=== PATIENT | male | born 1965 ===

== ENCOUNTER 2016-08-30 18:31 | Emergency (ER) | payer OTHER ==
[2016-08-30 18:36] VITALS: BMI 27.4
[2016-08-30] MEDS ORDERED: Sodium Chloride 0.9% 1,000 ML IV ONE (19:11)
--- NOTE | 2016-08-30 19:11 | C.PDOC ---
"History Of Present Illness 51 year old male presents to the ED with complaints of dizziness, and room- spinning vertigo for the past two days exacerbated by increased head movement. Patient denies nausea or vomiting. Chief Complaint (Nursing): Dizziness/Lightheaded History Per: Patient History/Exam Limitations: no limitations Onset/Duration Of Symptoms: Days Current Symptoms Are (Timing): Still Present Past Medical History Reviewed: Historical Data, Nursing Documentation, Vital Signs Vital Signs: Last Vital Signs Temp 98 F 08/30/16 18:37 Pulse 64 08/30/16 18:37 Resp 18 08/30/16 18:37 BP 111/67 08/30/16 18:37 Pulse Ox 98 08/30/16 20:37 Family History: States: Unknown Family Hx - Social History Hx Alcohol Use: Yes Hx Substance Use: No - Immunization History Hx Tetanus Toxoid Vaccination: No Hx Influenza Vaccination: No Hx Pneumococcal Vaccination: No Review Of Systems Constitutional: Negative for: Fever, Chills Cardiovascular: Negative for: Chest Pain Respiratory: Negative for: Shortness of Breath Gastrointestinal: Negative for: Nausea, Vomiting, Abdominal Pain, Diarrhea Neurological: Positive for: Dizziness (described as room spinning ) Physical Exam - Physical Exam Appears: Non-toxic, No Acute Distress Skin: Warm, Dry Head: Normacephalic Eye(s): bilateral: PERRL, EOMI, Other (no nystagmus ) Ear(s): Bilateral: Normal Neck: Normal ROM Chest: Symmetrical, No Deformity Cardiovascular: Rhythm Regular, No Murmur Respiratory: No Accessory Muscle Use, No Rales, No Rhonchi, No Stridor, No Wheezing Gastrointestinal/Abdominal: Soft, No Tenderness, No Distention, No Guarding, No Rebound Extremity: Normal ROM, No Tenderness Neurological/Psych: Oriented x3, Other (no focal deficits ) ED Course And Treatment - Laboratory Results Result Diagrams: 08/30/16 19:48 08/30/16 19:48 ECG: Interpreted By Me, Viewed By Me ECG Rhythm: Sinus Rhythm ECG Interpretation: No Acute Changes, Abnormal (presence of small Q wave in inferir leads) O2 Sat by Pulse Oximetry: 98 (room air ) - CT Scan/US CT HEAD WO CONTRAST Other Rad Studies (CT/US): Read By Radiologist CT/US Interpretation: [facility]. [facility]. Preliminary Radiology Report Call: [phone]. assistance Online chat: [email or web address]. Name: VÍCTOR MELVIN Age: 51Years M Date: 08/30/2016. Requesting Physician: Deven Flores : 1965. [facility] Procedure Ordered As Accession Number of Images. CT HEAD WO CT HEAD W O CONTRAST [id number] 162. Provided Clinical History: Headache. Page 1 of 2. EXAM: CT Head Without Intravenous Contrast. CLINICAL HISTORY: 51 year old male with headache. TECHNIQUE: Axial computed tomography images of the head without intravenous contrast. This CT exam was performed using one or more of the following dose reduction techniques: automated exposure control, adjustment of the mA and/or kV according to patient size, and/or use of. iterative reconstruction technique. EXAM DATE/TIME: 08/30/16 (7:11pm). COMPARISON: No relevant prior studies available. FINDINGS: Brain: Unremarkable. No acute hemorrhage. No significant white matter disease. No ceebral. edema. Ventricles: Unremarkable. No ventriculomegaly. Bones/joints: Unremarkable. No acute fracture. Soft tissues: Unremarkable. Sinuses: Bilateral paranasal sinus inflammatory changes. Some fluid is present in the right. maxillary sinus (not fully imaged), with an air-fluid level. Mastoid air cells: Unremarkable as visualized. No mastoid effusion. IMPRESSION: No acute intracranial pathology is appreciated. Bilateral paranasal sinus inflammatory changes. Some fluid is present in the right maxillary sinus. (not fully imaged), with an air-fluid level. VÍCTOR MELVIN | Preliminary Radiology Report. MINE ENGINEERING SUPERINTENDENT (QA) DISCREPANCY? If there is a discrepancy between the preliminary and final interpretation, please notify Powered via [email or web address]. If you do not have access to our QA portal, call our QA team at [phone]. CONFIDENTIALITY STATEMENT. This report is intended only for the use of the referring physician, and only in accordance with law, If you received this in error, call [phone]. Page 2 of 2. Thank you for allowing us to participate in the care of your patient. Dictated and Authenticated by: Kiki Luu MD. 08/30/2016 7:40 PM Eastern Time ([place] & [place]) Disposition Counseled Patient/Family Regarding: Diagnosis - Disposition Referrals: [facility] at [facility] [Outside] Disposition: HOME/ ROUTINE Disposition Time: 20:39 Condition: STABLE Prescriptions: Amoxicillin [Amoxil 500 mg Cap] 500 mg PO TID #20 cap Desloratadine/Pseudoephedrine [Clarinex-D 12 Hour Tablet] 1 each PO Q12 #20 tbmp.12hr Meclizine [Antivert] 25 mg PO Q6 #20 tab Instructions: Vertigo (ED), Sinusitis (ED) Forms: Gen Discharge Inst Samoan Print Language: PORTUGUESE - POA Present On Arrival: None - Clinical Impression Clinical Impression: Dizziness, Vertigo, Sinusitis - Scribe Statement The provider has reviewed the documentation as recorded by the Scribe Prisca Garcia All medical record entries made by the Francesibkatey were at my direction and personally dictated by me. I have reviewed the chart and agree that the record accurately reflects my personal performance of the history, physical exam, medical decision making, and the department course for this patient. I have also personally directed, reviewed, and agree with the discharge instructions and disposition."
[2016-08-30 19:51] LABS: BASO % 0.3 % (0.0-2.0); EOS # 0.1 K/uL (0.0-0.7); EOS % 0.7 % (0.0-4.0); HEMATOCRIT 41.9 % (35.0-51.0); LYMPH % 8.9 % (20.0-40.0); MEAN CELL VOLUME 83.4 fL (80.0-94.0); MEAN CORPUSCULAR HEMOGLOBIN 28.1 pg (27.0-31.0); MEAN CORPUSCULAR HGB CONC 33.7 g/dL (33.0-37.0); MEAN PLATELET VOLUME 7.5 fL (7.2-11.7); MONO # 0.4 K/uL (0.0-0.8); MONO % 3.5 % (0.0-10.0); PLATELET COUNT 197 K/uL (130-400); RED CELL DISTRIBUTION WIDTH 12.8 % (11.5-14.5); WHITE BLOOD COUNT 11.4 K/uL (4.8-10.8)
[2016-08-30 19:59] LABS: CHLORIDE 99 mmol/L (98-107); POTASSIUM 3.8 mmol/L (3.6-5.2); SODIUM 138 mmol/L (132-148)
[2016-08-30] MEDS ORDERED: Sodium Chloride 0.9% 1,000 ML ONE (19:59)
[2016-08-30 20:01] LABS: ALB/GLOB RATIO 1.2 (1.0-2.1); ALKALINE PHOSPHATASE 65 U/L (38-126); ALT/SGPT 26 U/L (21-72); AST/SGOT 28 U/L (17-59); BILIRUBIN,TOTAL 0.5 mg/dL (0.2-1.3); BLOOD UREA NITROGEN 16 mg/dL (9-20); CARBON DIOXIDE 26 mmol/L (22-30); GFR AFRICAN-AMERICAN > 60; TOTAL PROTEIN 7.8 g/dL (6.3-8.3)
[2016-08-30 20:02] LABS: CALCIUM 8.5 mg/dl (8.6-10.4); GLUCOSE,RANDOM 109 mg/dL (75-110)
[2016-08-30 20:35] LABS: NEUTROPHIL 82 % (50-75); REACTIVE LYMPHOCYTES 4 % (0-0); TOTAL CELLS COUNTED 100
[2016-08-30] MEDS ORDERED: Amoxicillin-Clav 500-125 mg Tab PO ONE (20:47)
[2016-08-30 20:57] VITALS: BP 107/70; PULSE 81; RESP 16; TEMP 97.8; O2SAT 97
--- NOTE | 2016-08-31 08:19 | CT ---
PROCEDURE: CT HEAD WITHOUT CONTRAST. HISTORY: Headache COMPARISON: None available. TECHNIQUE: Axial computed tomography images were obtained through the head/brain without intravenous contrast. This CT exam was performed using one or more of the following dose reduction techniques: Automated exposure control, adjustment of the mA and/or kV according to patient size, and/or use of iterative reconstruction technique. Radiation dose: Total exam DLP = 877 mGy-cm. FINDINGS: HEMORRHAGE: No intracranial hemorrhage. BRAIN: No mass effect or edema. No atrophy or chronic microvascular ischemic changes. VENTRICLES: Unremarkable. No hydrocephalus. CALVARIUM: Unremarkable. PARANASAL SINUSES: Bilateral paranasal sinus inflammatory changes. Some fluid is present in the right maxillary sinus with an air-fluid level. MASTOID AIR CELLS: Unremarkable as visualized. No inflammatory changes. OTHER FINDINGS: None. IMPRESSION: No acute intracranial abnormality. Bilateral paranasal sinus inflammatory changes. Some fluid is present in the right maxillary sinus with an air-fluid level. These findings were preliminarily reported at 7:40 p.m. on 08/30/[address] Kiki Luu from [facility].
--- NOTE | 2016-08-31 23:14 | CARD ---
APPROVED REPORT EKG Measurement Heart [id number] CO [id number] <Conclusion> Normal sinus rhythm Cannot rule out Inferior infarct, age undetermined Abnormal ECG
== END 2016-08-30 20:57 | disposition home or self-care (01) ==
LOC: C.ER 18:31
DX: J32.0 Chronic maxillary sinusitis (principal)
CPT/HCPCS: 70450; 80053; 85025; 93005; 96374; 99285; J2060; J7040

== ENCOUNTER 2018-08-10 14:37 | Inpatient (IN) | payer OTHER ==
[2018-08-10 14:38] VITALS: BMI 27.4
--- NOTE | 2018-08-10 15:19 | C.PDOC ---
History Of Present Illness 53 yr old w/ previous L finger amputations p/w abdominal pain. Pt notes abdominal pain began last night at 2200, sharp stabbing, throbbing to his RLQ and vicki-umiblical area. First time occurrence of pain. No constipation or diarrhea, no dark or bloody stool. No nausea or vomiting. Pt denies taking any medications for the pain. No fall or trauma. No fever, chills or night sweats. Pt endorses regular diet without recent travel. No medications. No etoh or drug use. no other complaints. Time Seen by Provider: 08/10/18 14:59 Chief Complaint (Nursing): Abdominal Pain Past Medical History Vital Signs: Last Vital Signs Temp 98.2 F 08/10/18 14:49 Pulse 70 08/10/18 14:49 Resp 17 08/10/18 14:49 BP 108/72 08/10/18 14:49 Pulse Ox 99 08/10/18 14:49 Family History: States: Unknown Family Hx - Social History Hx Alcohol Use: Yes Hx Substance Use: No - Immunization History Hx Tetanus Toxoid Vaccination: No Hx Influenza Vaccination: No Hx Pneumococcal Vaccination: No Review Of Systems Constitutional: Negative for: Fever, Chills, Sweats, Weakness, Malaise Eyes: Negative for: Pain, Vision Change, Conjunctivae Inflammation ENT: Negative for: Ear Pain, Ear Discharge, Nose Pain, Nose Congestion, Mouth Pain, Mouth Swelling Cardiovascular: Negative for: Chest Pain, Palpitations, Orthopnea, Edema, Light Headedness Respiratory: Negative for: Cough, Shortness of Breath, Hemoptysis, SOB with Excertion, Pleuritic Pain Gastrointestinal: Positive for: Abdominal Pain. Negative for: Nausea, Vomiting, Diarrhea, Constipation, Melena, Hematochezia, Hematemesis Genitourinary: Negative for: Frequency, Incontinence, Hematuria, Penile Discharge, Scrotal Pain, Rash, Penile Pain Musculoskeletal: Negative for: Neck Pain, Shoulder Pain Skin: Negative for: Rash, Lesions Neurological: Negative for: Weakness Psych: Negative for: Anxiety Physical Exam - Physical Exam Appears: Well, Non-toxic, No Acute Distress Skin: Normal Color, Warm Head: Atraumatic, Normacephalic Eye(s): bilateral: Normal Inspection, PERRL, EOMI Ear(s): Bilateral: Normal Nose: Normal, No Flaring, No Discharge Oral Mucosa: Moist Tongue: Normal Appearing Lips: Normal Appearing Gingiva: Normal Appearing Throat: Normal, No Erythema, No Exudate, No Drooling Neck: Normal, Normal ROM, Supple, Other (no meningeal signs) Lymphatic: Normal Exam, No Axilla Node Tenderness Chest: Symmetrical Cardiovascular: Rhythm Regular Respiratory: Normal Breath Sounds, No Rales, No Rhonchi, No Stridor, No Wheezing Gastrointestinal/Abdominal: Tenderness (rlq pain, periumbilical pain) Back: Normal Inspection, No CVA Tenderness, No Vertebral Tenderness, No Paraspinal Tenderness Extremity: Normal ROM Neurological/Psych: Oriented x3, Normal Speech, Normal Cognition Gait: Steady ED Course And Treatment - Laboratory Results Result Diagrams: 08/10/18 17:15 08/10/18 17:15 O2 Sat by Pulse Oximetry: 99 Medical Decision Making Medical Decision Makin yr old male p/w abdominal pain, RLQ, periumbilical. He also noted mild dysuria 2d prior, but none currently. No penile d/c or rash. No high risk sexual activity. No N/V. No dark or bloody stool or constipation / diarrhea. Will rule out appendicits w/ ct . pending imaging and labs 1752 labs, urine largely unremarkable pending imaging. [address] Flores pending imaging, reassessment pt in NAD Disposition - Disposition Disposition Time: 19:00 Condition: STABLE Forms: [facility] (Tajik) - Clinical Impression Clinical Impression: Abdominal pain
[2018-08-10] MEDS ORDERED: Sodium Chloride 0.9% 1,000 ML IV SCH (15:45)
[2018-08-10] MEDS ORDERED: Sodium Chloride 0.9% 1,000 ML ONE (16:38)
[2018-08-10 17:14] LABS: VENOUS BLOOD GAS BASE EXCESS 3.7 mmol/L (0.0-2.0); VENOUS BLOOD GAS PCO2 49 mmHg (40-60); VENOUS BLOOD GAS PO2 16 mm/Hg (30-55); VENOUS BLOOD PH 7.39 (7.32-7.43)
[2018-08-10 17:24] LABS: BASO # 0.1 K/uL (0.0-0.2); BASO % 1.1 % (0.0-2.0); EOS % 0.1 % (0.0-4.0); HEMOGLOBIN 13.5 g/dL (12.0-18.0); LYMPH # 0.9 K/uL (1.0-4.3); LYMPH % 14.1 % (20.0-40.0); MEAN CELL VOLUME 85.2 fL (80.0-94.0); MEAN CORPUSCULAR HGB CONC 32.9 g/dL (33.0-37.0); MEAN PLATELET VOLUME 8.2 fL (7.2-11.7); MONO # 0.3 K/uL (0.0-0.8); MONO % 4.3 % (0.0-10.0); NEUT # 4.9 K/uL (1.8-7.0); NEUT % 80.4 % (50.0-75.0); NRBC % 0.1 % (0.0-2.0); RBC 4.81 Mil/uL (4.40-5.90); RED CELL DISTRIBUTION WIDTH 12.7 % (11.5-14.5)
[2018-08-10 17:38] LABS: URINE BACTERIA RARE (<OCC); URINE BILIRUBIN NEGATIVE (NEGATIVE); URINE BLOOD NEGATIVE (NEGATIVE); URINE CLARITY Hazy (Clear); URINE COLOR Amber (YELLOW); URINE GLUCOSE (UA) NORMAL (Normal); URINE LEUKOCYTE ESTERASE NEG Leu/uL (Negative); URINE PROTEIN NEGATIVE (NEGATIVE); URINE UROBILINOGEN NORMAL mg/dL (0.2-1.0)
[2018-08-10 17:41] LABS: ALB/GLOB RATIO 1.1 (1.0-2.1); ALBUMIN 4.4 g/dL (3.5-5.0); ALT/SGPT 49 U/L (21-72); AST/SGOT 64 U/L (17-59); BLOOD UREA NITROGEN 14 mg/dL (9-20); CALCIUM 9.1 mg/dl (8.6-10.4); GFR NON-AFRICAN AMERICAN > 60; LIPASE 91 U/L (23-300)
[2018-08-10] MEDS ORDERED: Iodixanol 320 MG/ML 100 ML BOTTLE IV ONE (18:19)
--- NOTE | 2018-08-10 20:58 | CP.PCM.HP ---
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 53 M w/ PMhx of vertigo presents to ED for abdominal pain. Patient states pain began last night and has been gradually worsening since then, now 10/10, diffuse through abdomen w/ radiation to b/l lumbar region. Patient denies fevers, chills, nausea, vomiting, constipation, diarrhea. Patient reports having eaten home cooked food yesterday evening along with family with reported illness. Patient denies having taken any medication for the pain/ relief of symptoms. Patient reported to the surgery team that he recently began a new supplement (unsure of name) 3 days prior to arrival to ED. Patient denies having had a colonoscopy. In ED patient initially afebrile, became febrile 102.9 & tachycardiac HR 108s, SBP 110s. Blood cultures obtained and 1 X tylenol given. PMD: None PMHx: Vertigo Meds: Denies Allergies: NKDA PSHx: L partial 1st and complete 2nd digit amputation s/p work injury in 1995 SHx: Denies tobacco use, EOTH socially, denies illicit drug use FHx: Mother from stomach cancer, Father unknown medical history Present on Admission - Present on Admission Any Indicators Present on Admission: No History of DVT/PE: No History of Uncontrolled Diabetes: No Urinary Catheter: No Decubitus Ulcer Present: No Review of Systems - Constitutional Constitutional: absent: Chills, Fever, Night Sweats - EENT Eyes: absent: Blurred Vision, Change in Vision Nose/Mouth/Throat: absent: Nasal Congestion, Nasal Trauma - Cardiovascular Cardiovascular: absent: Chest Pain, Chest Pain at Rest, Dyspnea - Respiratory Respiratory: absent: Dyspnea, Dyspnea on Exertion - Genitourinary Genitourinary: absent: Change in Urinary Stream, Urinary Incontinence - Musculoskeletal Musculoskeletal: absent: Arthralgias, Muscle Weakness - Psychiatric Psychiatric: absent: Confusion - Hematologic/Lymphatic Hematologic: absent: Easy Bleeding, Easy Bruising Past Patient History - Past Social History Smoking Status: Never Smoked - PSYCHIATRIC Hx Substance Use: No - SURGICAL HISTORY Hx Surgeries: Yes Hx Orthopedic Surgery: Yes (LEFT HAND) - ANESTHESIA Hx Anesthesia: Yes Hx Anesthesia Reactions: No Meds Allergies/Adverse Reactions: Allergies Allergy/AdvReac Type Severity Reaction Status Date / Time No Known Allergies Allergy Verified 08/10/18 14:53 Physical Exam - Constitutional Appears: Non-toxic, No Acute Distress - Head Exam Head Exam: NORMAL INSPECTION, NORMOCEPHALIC - Eye Exam Eye Exam: EOMI, Normal appearance Pupil Exam: NORMAL ACCOMODATION - ENT Exam ENT Exam: Mucous Membranes Moist - Respiratory Exam Respiratory Exam: Clear to Auscultation Bilateral, NORMAL BREATHING PATTERN. absent: Rales, Rhonchi, Wheezes - Cardiovascular Exam Cardiovascular Exam: +S1, +S2. absent: Systolic Murmur - GI/Abdominal Exam GI & Abdominal Exam: Guarding, Normal Bowel Sounds, Soft, Tenderness. absent: Distended, Firm, Rigid Additional comments: Tenderness on superficial palpation Patient unable move w/o pain Patient unable further tolerate abdominal exam - Extremities Exam Extremities exam: Positive for: full ROM, normal inspection. Negative for: calf tenderness, pedal edema - Back Exam Back exam: CVA tenderness (L). absent: CVA tenderness (R) - Neurological Exam Neurological exam: Alert, Oriented x3 - Psychiatric Exam Psychiatric exam: Normal Affect, Normal Mood - Skin Skin Exam: Dry, Intact, Normal Color, Warm Results - Vital Signs Recent Vital Signs: Last Vital Signs Temp 101.9 F H 08/10/18 20:38 Pulse 102 H 08/10/18 20:38 Resp 16 08/10/18 20:38 BP 128/75 08/10/18 20:38 Pulse Ox 99 08/10/18 20:38 - Labs Result Diagrams: 08/10/18 17:15 08/10/18 17:15 Labs: Laboratory Results - last 24 hr 08/10/18 08/10/18 08/10/18 17:12 17:15 17:15 WBC 6.0 RBC 4.81 Hgb 13.5 Hct 41.0 MCV 85.2 MCH 28.0 MCHC 32.9 L RDW 12.7 Plt Count 137 MPV 8.2 Neut % (Auto) 80.4 H Lymph % (Auto) 14.1 L Graham % (Auto) 4.3 Eos % (Auto) 0.1 Baso % (Auto) 1.1 Neut # (Auto) 4.9 Lymph # (Auto) 0.9 L Graham # (Auto) 0.3 Eos # (Auto) 0.0 Baso # (Auto) 0.1 pO2 16 L VBG pH 7.39 VBG pCO2 49 VBG HCO3 25.7 VBG Total CO2 31.2 H VBG O2 Sat (Calc) 37.8 L VBG Base Excess 3.7 H VBG Potassium 3.6 Sodium 137.0 138 Chloride 106.0 99 Glucose 111 H Lactate 1.1 Potassium 3.7 Carbon Dioxide 30 Anion Gap 13 BUN 14 Creatinine 0.8 Est GFR ( Amer) > 60 Est GFR (Non-Af Amer) > 60 Random Glucose 116 H Calcium 9.1 Total Bilirubin 0.9 AST 64 H ALT 49 Alkaline Phosphatase 93 Total Protein 8.7 H Albumin 4.4 Globulin 4.2 H Albumin/Globulin Ratio 1.1 Lipase 91 Venous Blood Potassium 3.6 Urine Color Urine Clarity Urine pH Ur Specific [place] Urine Protein Urine Glucose (UA) Urine Ketones Urine Blood Urine Nitrate Urine Bilirubin Urine Urobilinogen Ur Leukocyte Esterase Urine WBC (Auto) Urine RBC (Auto) Urine Bacteria 08/10/18 17:15 WBC RBC Hgb Hct MCV MCH MCHC RDW Plt Count MPV Neut % (Auto) Lymph % (Auto) Graham % (Auto) Eos % (Auto) Baso % (Auto) Neut # (Auto) Lymph # (Auto) Graham # (Auto) Eos # (Auto) Baso # (Auto) pO2 VBG pH VBG pCO2 VBG HCO3 VBG Total CO2 VBG O2 Sat (Calc) VBG Base Excess VBG Potassium Sodium Chloride Glucose Lactate Potassium Carbon Dioxide Anion Gap BUN Creatinine Est GFR ( Amer) Est GFR (Non-Af Amer) Random Glucose Calcium Total Bilirubin AST ALT Alkaline Phosphatase Total Protein Albumin Globulin Albumin/Globulin Ratio Lipase Venous Blood Potassium Urine Color Sierra Urine Clarity Hazy Urine pH 5.0 Ur Specific [place] 1.021 Urine Protein Negative Urine Glucose (UA) Normal Urine Ketones Trace Urine Blood Negative Urine Nitrate Negative Urine Bilirubin Negative Urine Urobilinogen Normal Ur Leukocyte Esterase Neg Urine WBC (Auto) 3 Urine RBC (Auto) 1 Urine Bacteria Rare Assessment & Plan - Assessment and Plan (Free Text) Assessment: 53 M w/ new onset abdominal pain w/ pain out of proportion, CT revealing colitis vs gastroenteritis Plan: Colitis Gastroenteritits - lactate 1.1, Temp 102.8, HR 108, Lipase 91 - CT abd/pelvis: colitis vs gastroenteritis - NPO - LR @ 120 mls/hr - Ciproflaxicin 400 mg Q12H, flagyl 5000 mg Q8H - Morphine 4mg IVP Q4 PRN for pain - Zofran 4 mg IVP Q4 PRN for nausea/vomiting - Pepcid 20 mg daily - F/u EKG PPx - GI: Lactobacillus - DVT: Lovenox 40mg SC daily, SCDs <Elmer Kraus - Last Filed: 08/11/18 06:31> Results - Vital Signs Recent Vital Signs: Last Vital Signs Temp 98.8 F 08/10/18 23:42 Pulse 76 08/10/18 23:42 Resp 20 08/10/18 23:42 BP 100/60 08/10/18 23:42 Pulse Ox 97 08/10/18 23:42 - Labs Result Diagrams: 08/10/18 17:15 08/10/18 17:15 Labs: Laboratory Results - last 24 hr 08/10/18 08/10/18 08/10/18 17:12 17:15 17:15 WBC 6.0 RBC 4.81 Hgb 13.5 Hct 41.0 MCV 85.2 MCH 28.0 MCHC 32.9 L RDW 12.7 Plt Count 137 MPV 8.2 Neut % (Auto) 80.4 H Lymph % (Auto) 14.1 L Graham % (Auto) 4.3 Eos % (Auto) 0.1 Baso % (Auto) 1.1 Neut # (Auto) 4.9 Lymph # (Auto) 0.9 L Graham # (Auto) 0.3 Eos # (Auto) 0.0 Baso # (Auto) 0.1 pO2 16 L VBG pH 7.39 VBG pCO2 49 VBG HCO3 25.7 VBG Total CO2 31.2 H VBG O2 Sat (Calc) 37.8 L VBG Base Excess 3.7 H VBG Potassium 3.6 Sodium 137.0 138 Chloride 106.0 99 Glucose 111 H Lactate 1.1 Potassium 3.7 Carbon Dioxide 30 Anion Gap 13 BUN 14 Creatinine 0.8 Est GFR ( Amer) > 60 Est GFR (Non-Af Amer) > 60 Random Glucose 116 H Calcium 9.1 Total Bilirubin 0.9 AST 64 H ALT 49 Alkaline Phosphatase 93 Total Protein 8.7 H Albumin 4.4 Globulin 4.2 H Albumin/Globulin Ratio 1.1 Lipase 91 Venous Blood Potassium 3.6 Urine Color Urine Clarity Urine pH Ur Specific [place] Urine Protein Urine Glucose (UA) Urine Ketones Urine Blood Urine Nitrate Urine Bilirubin Urine Urobilinogen Ur Leukocyte Esterase Urine WBC (Auto) Urine RBC (Auto) Urine Bacteria 08/10/18 17:15 WBC RBC Hgb Hct MCV MCH MCHC RDW Plt Count MPV Neut % (Auto) Lymph % (Auto) Graham % (Auto) Eos % (Auto) Baso % (Auto) Neut # (Auto) Lymph # (Auto) Graham # (Auto) Eos # (Auto) Baso # (Auto) pO2 VBG pH VBG pCO2 VBG HCO3 VBG Total CO2 VBG O2 Sat (Calc) VBG Base Excess VBG Potassium Sodium Chloride Glucose Lactate Potassium Carbon Dioxide Anion Gap BUN Creatinine Est GFR ( Amer) Est GFR (Non-Af Amer) Random Glucose Calcium Total Bilirubin AST ALT Alkaline Phosphatase Total Protein Albumin Globulin Albumin/Globulin Ratio Lipase Venous Blood Potassium Urine Color Sierra Urine Clarity Hazy Urine pH 5.0 Ur Specific [place] 1.021 Urine Protein Negative Urine Glucose (UA) Normal Urine Ketones Trace Urine Blood Negative Urine Nitrate Negative Urine Bilirubin Negative Urine Urobilinogen Normal Ur Leukocyte Esterase Neg Urine WBC (Auto) 3 Urine RBC (Auto) 1 Urine Bacteria Rare Assessment & Plan - Date & Time Date: 08/11/18 (I have seen and examined the patient. I agree with the findings and plan of care as documented by Dr. Norton. Patient with colitis. Abdominal pain. Cipro and Flagyl. Symptomatic treatment. Monitor for acute changes.) Time: 06:30 Attending/Attestation - Attestation I have personally seen and examined this patient.: Yes I have fully participated in the care of the patient.: Yes I have reviewed all pertinent clinical information: Yes
--- NOTE | 2018-08-10 22:21 | CP.PCM.CON ---
<Marilee Hawley - Last Filed: 08/10/18 22:55> History of Present Illness - History of Present Illness History of Present Illness: General Surgery Dr. Schuler 53 y/o M w/ no significant PMHx presents to the ED c/o abd pain. Pt states pain began Wednesday evening as minor ache. Pt reports pain significantly worsened throughout today. Pt denies having similar pain in the past. Pt reports pain lo calized to lower abd w/ radiation to back upon movement. Pt admits to associated nausea but denies vomiting, D/C. Pt denies any new or odd food but does admit to new vitamin supplement started 3days [employer] (1-2days prior to onset of pain). Pt has never had a colonoscopy. Pt denies CP, SOB, F/C, hematemesis, melena, hematochezia, dysuria, hesitancy, frequency, hematuria. In the ED, pt found to be febrile, Tmax 102.8, and tachy, HR 108. Labs showed normal WBC @6. Pt underwent CTAP which revealed multiple loops of fluid-filled, mildly dilated small bowel, w/ stool throughout colon. No transition point. mildly dilated, fluid-filled appendix w/o inflammation. CT concerning for gastroenteritis/colitis. Surgery called for significant abd pain in setting of above CT findings. PMHx: vertigo Meds: reviewed in chart, new vitamin B/protein supplement NKDA PSHx: L finger amputation SHx: denies tobacco, drug use. occasional EtOH FHx: noncontributory. Review of Systems - Review of Systems All systems: reviewed and no additional remarkable complaints except (see HPI) Past Patient History - Past Social History Smoking Status: Never Smoked - PSYCHIATRIC Hx Substance Use: No - SURGICAL HISTORY Hx Surgeries: Yes Hx Orthopedic Surgery: Yes (LEFT HAND) - ANESTHESIA Hx Anesthesia: Yes Hx Anesthesia Reactions: No Meds Allergies/Adverse Reactions: Allergies Allergy/AdvReac Type Severity Reaction Status Date / Time No Known Allergies Allergy Verified 08/10/18 14:53 - Medications Medications: Current Medications Sodium Chloride (Sodium Chloride 0.9%) 1,000 mls @ 100 mls/hr IV .Q10H [facility] Last Admin: 08/10/18 16:52 Dose: 100 mls/hr Physical Exam - Constitutional Appears: Non-toxic, No Acute Distress - Head Exam Head Exam: NORMAL INSPECTION - Eye Exam Eye Exam: Normal appearance - ENT Exam ENT Exam: Mucous Membranes Moist - Respiratory Exam Respiratory Exam: NORMAL BREATHING PATTERN. absent: Accessory Muscle Use, Respiratory Distress - Cardiovascular Exam Cardiovascular Exam: REGULAR RHYTHM. absent: Bradycardia, Tachycardia - GI/Abdominal Exam GI & Abdominal Exam: Guarding (voluntary), Soft, Tenderness (TTP epigastric, RUQ, RLQ). absent: Distended, Firm, Rebound, Rigid - Expanded GI/Abdominal Exam Expanded Expanded GI & Abdominal Exam: absent: Obturator Sign, Psoas Sign, Rovsing's Sign - Extremities Exam Extremities exam: Positive for: normal inspection - Neurological Exam Neurological exam: Alert, Oriented x3 - Psychiatric Exam Psychiatric exam: Normal Affect, Normal Mood - Skin Skin Exam: Dry, Intact, Normal Color, Warm Results - Vital Signs Recent Vital Signs: Last Vital Signs Temp 101.9 F H 08/10/18 20:38 Pulse 102 H 08/10/18 20:38 Resp 16 08/10/18 20:38 BP 128/75 08/10/18 20:38 Pulse Ox 99 08/10/18 20:38 - Labs Result Diagrams: 08/10/18 17:15 08/10/18 17:15 Labs: Laboratory Results - last 24 hr 08/10/18 08/10/18 08/10/18 17:12 17:15 17:15 WBC 6.0 RBC 4.81 Hgb 13.5 Hct 41.0 MCV 85.2 MCH 28.0 MCHC 32.9 L RDW 12.7 Plt Count 137 MPV 8.2 Neut % (Auto) 80.4 H Lymph % (Auto) 14.1 L [place] % (Auto) 4.3 Eos % (Auto) 0.1 Baso % (Auto) 1.1 Neut # (Auto) 4.9 Lymph # (Auto) 0.9 L [place] # (Auto) 0.3 Eos # (Auto) 0.0 Baso # (Auto) 0.1 pO2 16 L VBG pH 7.39 VBG pCO2 49 VBG HCO3 25.7 VBG Total CO2 31.2 H VBG O2 Sat (Calc) 37.8 L VBG Base Excess 3.7 H VBG Potassium 3.6 Sodium 137.0 138 Chloride 106.0 99 Glucose 111 H Lactate 1.1 Potassium 3.7 Carbon Dioxide 30 Anion Gap 13 BUN 14 Creatinine 0.8 Est GFR ( Amer) > 60 Est GFR (Non-Af Amer) > 60 Random Glucose 116 H Calcium 9.1 Total Bilirubin 0.9 AST 64 H ALT 49 Alkaline Phosphatase 93 Total Protein 8.7 H Albumin 4.4 Globulin 4.2 H Albumin/Globulin Ratio 1.1 Lipase 91 Venous Blood Potassium 3.6 Urine Color Urine Clarity Urine pH Ur Specific [place] Urine Protein Urine Glucose (UA) Urine Ketones Urine Blood Urine Nitrate Urine Bilirubin Urine Urobilinogen Ur Leukocyte Esterase Urine WBC (Auto) Urine RBC (Auto) Urine Bacteria 08/10/18 17:15 WBC RBC Hgb Hct MCV MCH MCHC RDW Plt Count MPV Neut % (Auto) Lymph % (Auto) [place] % (Auto) Eos % (Auto) Baso % (Auto) Neut # (Auto) Lymph # (Auto) [place] # (Auto) Eos # (Auto) Baso # (Auto) pO2 VBG pH VBG pCO2 VBG HCO3 VBG Total CO2 VBG O2 Sat (Calc) VBG Base Excess VBG Potassium Sodium Chloride Glucose Lactate Potassium Carbon Dioxide Anion Gap BUN Creatinine Est GFR ( Amer) Est GFR (Non-Af Amer) Random Glucose Calcium Total Bilirubin AST ALT Alkaline Phosphatase Total Protein Albumin Globulin Albumin/Globulin Ratio Lipase Venous Blood Potassium Urine Color [place] Urine Clarity Hazy Urine pH 5.0 Ur Specific [place] 1.021 Urine Protein Negative Urine Glucose (UA) Normal Urine Ketones Trace Urine Blood Negative Urine Nitrate Negative Urine Bilirubin Negative Urine Urobilinogen Normal Ur Leukocyte Esterase Neg Urine WBC (Auto) 3 Urine RBC (Auto) 1 Urine Bacteria Rare - Imaging and Cardiology Chest x-ray Status: Image reviewed by me CT scan - abdomen Status: Image reviewed by me, Report reviewed by me Assessment & Plan - Assessment and Plan (Free Text) Assessment: 53 y/o M w/ abd pain Plan: - NPO/IVF - pain management - anti-emetic - serial abd exams - GI/DVT PPx - encourage OOB to chair/Amb Pt discussed w/ Dr. Harini Hawley DO PGY3 <Oliverio Schuler - Last Filed: 08/16/18 13:41> History of Present Illness - History of Present Illness History of Present Illness: All medical record entries made by the resident were at my direction. I have reviewed the chart and agree that the record accurately reflects my personal performance of the history, physical exam, medical decision making. I have also personally directed, reviewed, and agree with the resident note Results - Vital Signs Recent Vital Signs: Last Vital Signs Temp 98.8 F 08/15/18 07:37 Pulse 61 08/15/18 07:37 Resp 20 08/15/18 07:37 BP 106/64 08/15/18 07:37 Pulse Ox 96 08/15/18 07:37 - Labs Result Diagrams: 08/15/18 06:51 08/15/18 06:51
[2018-08-10] MEDS ORDERED: Morphine 4 MG/ML VIAL IVP PRN (22:32)
[2018-08-10] MEDS: Lactated Ringer's 1,000 ML IV SCH (22:46)
[2018-08-11] MEDS: Ciprofloxacin 400mg/200ml D5W 400 MG/200 ML BAG IVPB SCH ×2 (01:10→12:27)
[2018-08-11] MEDS: metroNIDAZOLE IV 500 mg/100 ml 500 MG/100 ML BAG IVPB SCH ×4 (06:41→22:10)
[2018-08-11] MEDS ORDERED: Morphine 4 MG/ML VIAL IVP PRN ×2 (06:50→07:50)
[2018-08-11] MEDS: Lactated Ringer's 1,000 ML IV SCH ×2 (08:00→14:52)
[2018-08-11 08:02] LABS: INR 1.4; PROTHROMBIN TIME 15.6 SECONDS (9.7-12.2)
[2018-08-11 08:07] LABS: MONO # 0.5 K/uL (0.0-0.8)
[2018-08-11 08:11] LABS: BASO % 0.1 % (0.0-2.0); HEMOGLOBIN 12.5 g/dL (12.0-18.0); LYMPH # 1.5 K/uL (1.0-4.3); LYMPH % 16.2 % (20.0-40.0); MEAN CELL VOLUME 84.9 fL (80.0-94.0); MEAN CORPUSCULAR HEMOGLOBIN 28.9 pg (27.0-31.0); MEAN PLATELET VOLUME 8.5 fL (7.2-11.7); MONO % 5.5 % (0.0-10.0); NEUT % 78.2 % (50.0-75.0); NRBC % 0.5 % (0.0-2.0); RBC 4.32 Mil/uL (4.40-5.90); RED CELL DISTRIBUTION WIDTH 12.9 % (11.5-14.5)
[2018-08-11 08:37] LABS: ALBUMIN 3.5 g/dL (3.5-5.0); ALT/SGPT 37 U/L (21-72); AST/SGOT 48 U/L (17-59); BLOOD UREA NITROGEN 13 mg/dL (9-20); CALCIUM 8.2 mg/dl (8.6-10.4); GFR NON-AFRICAN AMERICAN > 60
[2018-08-11] MEDS: Lactobacillus Acidophilus 500 MU Cap PO SCH ×2 (09:03→18:09)
[2018-08-11] MEDS ORDERED: Midazolam 2 MG/2 ML VIAL ONE (09:32)
[2018-08-11] MEDS ORDERED: Propofol 10 mg/ml Inj (20 ML) ONE (09:33)
[2018-08-11] MEDS ORDERED: Bupivacaine 0.25% 20 ML INJ IJ ONE (09:55)
[2018-08-11] MEDS ORDERED: ceFAZolin 1 gm in NS 1 GM/100 ML BAG IVPB ONE (09:55)
--- NOTE | 2018-08-11 09:56 | CP.PCM.PN ---
Subjective - Date & Time of Evaluation Date of Evaluation: 08/11/18 Time of Evaluation: 07:55 - Subjective Subjective: Medical Attending Note: patient seen and examined. Patient denies headache, denies fever, denies chills, denies chest pain, denies shortness of breathe, reports the abdominal pain has been intense all night and has not rested, denies dysuria. Patient speaks both ivorian and macedonian. Patient family not present at bedside. patient is aware he is going for surgery today. He is advised to speak with family. Objective - Vital Signs/Intake and Output Vital Signs (last 24 hours): Temp Pulse Resp BP Pulse Ox 97.8 F 96 H 20 97/60 L 96 08/11/18 07:00 08/11/18 07:00 08/11/18 07:00 08/11/18 07:00 08/11/18 07:00 Intake and Output: 08/11/18 08/11/18 06:59 18:59 Intake Total 960 Balance 960 - Medications Medications: Current Medications Famotidine (Pepcid) 20 mg IVP DAILY [facility] Last Admin: 08/11/18 09:03 Dose: Not Given Lactated Ringer's (Lactated Ringer's) 1,000 mls @ 120 mls/hr IV .Q8H20M [facility] Last Admin: 08/11/18 08:00 Dose: Not Given Ciprofloxacin (Cipro 400mg/200ml Dsw) 400 mg in 200 mls @ 133 mls/hr IVPB Q12H [facility]; Protocol Last Admin: 08/11/18 01:10 Dose: 133 mls/hr Metronidazole (Flagyl) 500 mg in 100 mls @ 100 mls/hr IVPB Q8H [facility]; Protocol Last Admin: 08/11/18 06:41 Dose: 100 mls/hr Lactobacillus Acidophilus (Lactobacillus) 1 cap PO BID [facility] Last Admin: 08/11/18 09:03 Dose: Not Given Morphine Sulfate (Morphine) 4 mg IVP Q4 PRN PRN Reason: Pain, moderate (4-7) Ondansetron HCl (Zofran Inj) 4 mg IVP Q4 PRN PRN Reason: Nausea/Vomiting - Labs Labs: 08/11/18 07:34 08/11/18 07:34 PT 15.6 SECONDS (9.7-12.2) H 08/11/18 07:33 INR 1.4 08/11/18 07:33 APTT 33 SECONDS (21-34) 08/11/18 07:33 - Constitutional Appears: Non-toxic, In Acute Distress - Head Exam Head Exam: NORMAL INSPECTION - Eye Exam Eye Exam: EOMI - ENT Exam ENT Exam: Mucous Membranes Moist - Respiratory Exam Respiratory Exam: Clear to Ausculation Bilateral, NORMAL BREATHING PATTERN. absent: Rales, Rhonchi - Cardiovascular Exam Cardiovascular Exam: REGULAR RHYTHM, +S1, +S2 - GI/Abdominal Exam GI & Abdominal Exam: Distended, Guarding, Soft, Tenderness (diffuse), Hypoactive Bowel Sounds, Rebound. absent: Firm, Rigid, Organomegaly - Extremities Exam Extremities Exam: absent: Pedal Edema, Tenderness - Neurological Exam Neurological Exam: Alert, Awake, Oriented x3 - Skin Skin Exam: Dry, Normal Color, Warm Assessment and Plan (1) Abdominal pain Assessment & Plan: General surgery on board help appreciated patient is for exlap today NPO hold anticoagulation IV fluids empiric antibiotics awaiting official read of CT scan abdomen/pelvis IV contrast Status: Acute (2) Fever Assessment & Plan: pending blood cultures pending official CT abdomen report lactic acid normal prior Patient is in empirici antibiotics. will order for UA, urine culture, and procalcitonin Status: Acute (3) Prophylactic measure Assessment & Plan: hold chemical anticoagulation for OR today Protonix 40mg IV daily Status: Acute
[2018-08-11] MEDS ORDERED: Enoxaparin 40 mg Syringe SC SCH (10:00)
[2018-08-11] MEDS ORDERED: Lidocaine Hydrochloride 5 ML INJ ONE (10:40)
[2018-08-11] MEDS ORDERED: Succinylcholine Chloride 20 mg/ml Syr (5 ml) IV ONE (10:40)
[2018-08-11] MEDS ORDERED: Rocuronium 10 mg/ml (5 ml) ONE (10:40)
--- NOTE | 2018-08-11 10:51 | CT ---
Date of service: 08/10/2018 PROCEDURE: CT Abdomen and Pelvis with contrast HISTORY: rlq pain COMPARISON: None. TECHNIQUE: Contrast dose: Radiation dose: Total exam DLP = 404.57 mGy-cm. This CT exam was performed using one or more of the following dose reduction techniques: Automated exposure control, adjustment of the mA and/or kV according to patient size, and/or use of iterative reconstruction technique. FINDINGS: LOWER THORAX: Unremarkable. LIVER: Unremarkable. No gross lesion or ductal dilatation. GALLBLADDER AND BILE DUCTS: Unremarkable. PANCREAS: Unremarkable. No gross lesion or ductal dilatation. SPLEEN: Unremarkable. ADRENALS: Unremarkable. No mass. KIDNEYS AND URETERS: Unremarkable. No hydronephrosis. No solid mass. VASCULATURE: Unremarkable. No aortic aneurysm. No aortic atherosclerotic calcification or mural plaque present. BOWEL: Scattered mildly dilated loops of small bowel possibly representing ileus. APPENDIX: Normal appendix. PERITONEUM: Unremarkable. No free fluid. No free air. LYMPH NODES: Unremarkable. No enlarged lymph nodes. BLADDER: Unremarkable. REPRODUCTIVE: Unremarkable. BONES: No acute fracture. OTHER FINDINGS: None. IMPRESSION: Scattered mildly dilated loops of small bowel possibly representing ileus.
--- NOTE | 2018-08-11 11:03 | RAD ---
HISTORY: febrile, abdominal pain COMPARISON: None available TECHNIQUE: Chest PA and lateral FINDINGS: LUNGS: Mild biapical pleural thickening. No focal consolidation. Please note that chest x-ray has limited sensitivity for the detection of pulmonary masses. PLEURA: No significant pleural effusion identified. No definite pneumothorax . CARDIOVASCULAR: Heart size appears top normal. OSSEOUS STRUCTURES: Mild degenerative changes of the spine. VISUALIZED UPPER ABDOMEN: Unremarkable. OTHER FINDINGS: None. IMPRESSION: No focal consolidation.
[2018-08-11] MEDS ORDERED: Neostigmine 1:1000 (1 mg/ml) Inj ONE (11:08)
[2018-08-11] MEDS ORDERED: HYDROmorphone 0.5 mg/0.5 ml ISec IVP PRN (11:11)
--- NOTE | 2018-08-11 11:24 | PCM.SURG1 ---
Surgeon's Initial Post Op Note - Surgeon's Notes Surgeon: Dr. Chowdhury Cutting Table Operator: Jayleen Falcon PGY4; Lisette Baker OMS III Type of Anesthesia: General Endo Anesthesia Administered By: Teddy Pre-Operative Diagnosis: Acute Appendicitis Operative Findings: Perforated appendicitis Post-Operative Diagnosis: Acute perforated appendicitis Operation Performed: Laparoscopic Appendectomy Specimen/Specimens Removed: Appendix Estimated Blood Loss: EBL {In ML}: 5 Blood Products Given: N/A Drains Used: Nestor Post-Op Condition: Good Date of Surgery/Procedure: 08/11/18 Time of Surgery/Procedure: 11:24
[2018-08-11 13:27] VITALS: RESP 20
[2018-08-11 17:32] LABS: URINE BILIRUBIN NEGATIVE (NEGATIVE); URINE BLOOD NEGATIVE (NEGATIVE); URINE CLARITY Clear (Clear); URINE COLOR Straw (YELLOW); URINE GLUCOSE (UA) NORMAL (Normal); URINE LEUKOCYTE ESTERASE NEG Leu/uL (Negative); URINE PROTEIN NEGATIVE (NEGATIVE); URINE UROBILINOGEN NORMAL mg/dL (0.2-1.0)
--- NOTE | 2018-08-11 22:25 | OP ---
PROCEDURE DATE: 08/11/2018 SURGEON: Oliverio Chowdhury MD [employer] PROFESSOR: Jayleen Falcon DO, PGY-4 ANESTHESIOLOGIST: Dr. Espinal TYPE OF ANESTHESIA: General anesthesia. PREOPERATIVE DIAGNOSIS: Acute appendicitis. POSTOPERATIVE DIAGNOSIS: Acute perforated appendicitis. INDICATIONS FOR OPERATION: This is a 53-year-old male who presented to the hospital with diffuse abdominal pain. On CT, he was found to have findings of possible appendicitis, and he was taken to the operating room. DESCRIPTION OF PROCEDURE: The patient was placed on the operating table in the supine position. General anesthesia was induced. Time-out was completed verifying the correct patient, procedure, site, and positioning prior to beginning the procedure. The patient was prepped and draped in the usual sterile fashion. Local anesthetic was injected inferior to the umbilicus, and a 5-mm incision was made in the natural skin line just below the umbilicus. The Veress needle was inserted, and proper position was confirmed with saline meniscus test. The abdomen was insufflated with carbon dioxide to a pressure of 15 mmHg. The patient tolerated the insufflation well. A 5-mm laparoscope was inserted using the Visiport technique. Laparoscope was inserted into the abdomen, and there was no injury from initial trocar placement noted. There were findings of purulent fluid within the left and right pericolic gutters. Additional trocars were then inserted in the following locations: A 5-mm trocar in the left lower quadrant and a 12-mm trocar in the suprapubic. Trocars were inserted under direct visualization. There were no injuries on trocar placement. Attention was then directed to the right lower quadrant. The small bowel was gently maneuvered away from the right lower quadrant of the abdomen. The patient was placed in Trendelenburg position with the right side elevated. The appendix was then identified and gently lifted up. Purulent fluid was suctioned out from beneath the appendix. The appendix was gently dissected free from beneath the cecum and elevated with an atraumatic grasper. A window was made in the mesentery between the base of the appendix and the mesoappendix. The mesoappendix was then divided with an Endo JOSÉ LUIS stapler. The base of the appendix was then also divided with an Endo JOSÉ LUIS stapler white load. There was no bleeding from the staple line. The appendix was placed in an endoscopic retrieval bag and withdrawn from the abdomen. The remainder of any purulent drainage or blood was suctioned from the abdomen. There was no additional bleeding noted and no additional fluid found in the abdomen. A 15-Bengali Nestor drain was then placed through the left lower quadrant port and placed adjacent to the cecum in the region of the procedure. Trocars were then removed under direct visualization. The abdomen was allowed to collapse. The fascia of the 12-mm trocar site was closed with a [id number] 0 Vicryl suture, and the skin was closed with a running subcuticular suture of 5-0 Monocryl. Topical skin adhesive was applied. The patient was extubated. He tolerated the procedure well and taken to the postanesthesia care unit in stable condition. Jayleen Falcon DO Oliverio Chowdhury M.D. MTDHeraclio
[2018-08-12] MEDS: Lactated Ringer's 1,000 ML IV SCH ×5 (01:12→19:25)
[2018-08-12] MEDS: metroNIDAZOLE IV 500 mg/100 ml 500 MG/100 ML BAG IVPB SCH ×3 (06:07→22:11)
--- NOTE | 2018-08-12 07:34 | CP.PCM.PN ---
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 Pt has not had a bm yet. Pt has been ambulating well. reports an episode of vomiting right after receiving morphine last night. denies cp sob fc nv Objective - Vital Signs/Intake and Output Vital Signs (last 24 hours): Temp Pulse Resp BP Pulse Ox 98.9 F 86 20 105/66 95 08/12/18 06:00 08/12/18 00:00 08/12/18 00:00 08/12/18 00:00 08/12/18 00:00 Intake and Output: 08/12/18 08/12/18 06:59 18:59 Intake Total 1250 Output Total 130 Balance 1120 - Medications Medications: Current Medications Acetaminophen (Tylenol 325mg Tab) 975 mg PO Q8H [facility] Last Admin: 08/12/18 03:30 Dose: Not Given Lactated Ringer's (Lactated Ringer's) 1,000 mls @ 120 mls/hr IV .Q8H20M [facility] Last Admin: 08/12/18 05:13 Dose: 120 mls/hr Ciprofloxacin (Cipro 400mg/200ml Dsw) 400 mg in 200 mls @ 133 mls/hr IVPB Q12H [facility]; Protocol Last Admin: 08/12/18 00:00 Dose: 133 mls/hr Metronidazole (Flagyl) 500 mg in 100 mls @ 100 mls/hr IVPB Q8H [facility]; Protocol Last Admin: 08/12/18 06:07 Dose: 100 mls/hr Lactobacillus Acidophilus (Lactobacillus) 1 cap PO BID [facility] Last Admin: 08/11/18 18:09 Dose: 1 cap Morphine Sulfate (Morphine) 4 mg IVP Q4 PRN PRN Reason: Pain, moderate (4-7) Last Admin: 08/12/18 01:15 Dose: 4 mg Ondansetron HCl (Zofran Inj) 4 mg IVP Q4 PRN PRN Reason: Nausea/Vomiting Pantoprazole Sodium (Protonix Inj) 40 mg IVP DAILY [facility] Last Admin: 08/11/18 10:33 Dose: Not Given - Labs Labs: 08/11/18 07:34 08/11/18 07:34 PT 15.6 SECONDS (9.7-12.2) H 08/11/18 07:33 INR 1.4 08/11/18 07:33 APTT 33 SECONDS (21-34) 08/11/18 07:33 - Additional Findings Additional findings: - Constitutional Appears: Non-toxic, In Acute Distress - Head Exam Head Exam: NORMAL INSPECTION - Eye Exam Eye Exam: EOMI - ENT Exam ENT Exam: Mucous Membranes Moist - Respiratory Exam Respiratory Exam: Clear to Ausculation Bilateral, NORMAL BREATHING PATTERN. absent: Rales, Rhonchi - Cardiovascular Exam Cardiovascular Exam: REGULAR RHYTHM, +S1, +S2 - GI/Abdominal Exam GI & Abdominal Exam: non distended, tender to deep palpation - Extremities Exam Extremities Exam: absent: Pedal Edema, Tenderness - Neurological Exam Neurological Exam: Alert, Awake, Oriented x3 - Skin Skin Exam: Dry, Normal Color, Warm Assessment and Plan - Assessment and Plan (Free Text) Plan: Perforated Appendix Assessment & Plan: General surgery on board help appreciated POD#1 exlap appendectomy liquid diet LR's @ 120 Zosyn 3.375 q8 IVPB Flagyl 500 q8 IVPB Zofran 4 IV q4 Morphine 4mg IVP PRN q4 CT scan abdomen/pelvis IV contrast: perf appndx Status: Acute Fever Assessment & Plan: afebrile overnight POD#1 exlap appendectomy procal 4.41 Blood cultures neg 24hrs pending body fluid cultures and AFB cultures Zosyn + Flagyl IVPB Tylenol 975 q8 Status: Acute (3) Prophylactic measure Assessment & Plan: pt ambulatory restating anticoag pending GenSx OK Liquid diet Protonix 40mg IV daily Status: Acute <Raysa Carter V - Last Filed: 08/13/18 16:43> Objective - Vital Signs/Intake and Output Vital Signs (last 24 hours): Temp Pulse Resp BP Pulse Ox 99.2 F 83 20 118/77 96 08/13/18 16:00 08/13/18 16:00 08/13/18 16:00 08/13/18 16:00 08/13/18 16:00 Intake and Output: 08/13/18 08/13/18 06:59 18:59 Intake Total 1440 Output Total 95 130 Balance 1345 -130 - Medications Medications: Current Medications Acetaminophen (Tylenol 325mg Tab) 975 mg PO Q8H [facility] Last Admin: 08/13/18 10:57 Dose: Not Given Benzocaine/Menthol (Cepacol Sore Throat) 1 brannon MT TID PRN PRN Reason: Sore Throat Enoxaparin Sodium (Lovenox) 40 mg SC DAILY [facility] Last Admin: 08/13/18 09:35 Dose: 40 mg Lactated Ringer's (Lactated Ringer's) 1,000 mls @ 120 mls/hr IV .Q8H20M [facility] Last Admin: 08/13/18 09:37 Dose: 120 mls/hr Metronidazole (Flagyl) 500 mg in 100 mls @ 100 mls/hr IVPB Q8H [facility]; Protocol Last Admin: 08/13/18 14:07 Dose: 100 mls/hr Cefepime HCl 1 gm/ Sodium (Chloride) 50 mls @ 100 mls/hr IVPB Q8H [facility]; Protocol Last Admin: 08/13/18 10:21 Dose: 100 mls/hr Ketorolac Tromethamine (Toradol) 30 mg IVP Q6 [facility] Stop: 08/17/18 08:16 Last Admin: 08/13/18 11:40 Dose: Not Given Lactobacillus Acidophilus (Lactobacillus) 1 cap PO BID [facility] Last Admin: 08/13/18 09:34 Dose: 1 cap Morphine Sulfate (Morphine) 4 mg IVP Q4 PRN PRN Reason: Pain, moderate (4-7) Last Admin: 08/12/18 01:15 Dose: 4 mg Ondansetron HCl (Zofran Inj) 4 mg IVP Q4 PRN PRN Reason: Nausea/Vomiting Pantoprazole Sodium (Protonix Inj) 40 mg IVP DAILY [facility] Last Admin: 08/13/18 09:35 Dose: 40 mg Sennosides (Senokot Tab) 8.6 mg PO DAILY [facility] Last Admin: 08/13/18 09:34 Dose: 8.6 mg - Labs Labs: 08/13/18 07:10 08/13/18 10:06 PT 15.6 SECONDS (9.7-12.2) H 08/11/18 07:33 INR 1.4 08/11/18 07:33 APTT 33 SECONDS (21-34) 08/11/18 07:33 Assessment and Plan (1) Abdominal pain Status: Acute (2) Fever Status: Acute (3) Prophylactic measure Status: Acute Attending/Attestation - Attestation I have personally seen and examined this patient.: Yes I have fully participated in the care of the patient.: Yes I have reviewed all pertinent clinical information, including history, physical exam and plan: Yes Notes (Text): This is late computer entry 08/12/18. Patient seen, examined, and case discussed with day-time resident. Patient is postoperative day 1 from emergent ex lap surgery for noted perforated appendicitis. We walked the patient around the floor. Patient is doing better. D/c Ciprofloxacin start Zosyn will follow-up wound culture. Postoperative management per surgery Assessment and Plan (1) Abdominal Perforation Abdominal pain Assessment & Plan: * General surgery (Dr. Gómez) on board help appreciated * Ct abdomen/pelvis: scattered mildly dilated loops of small bowel possibly representing ileus. * preoperative/intraoperative/postoperative management per surgery * d/c ciprofloxacin start Zosyn * Flagyl 500mg IVPB Q8H (active since 08/10/18) * Operative note 08/11/18 Status: Acute (2) Fever Assessment & Plan: * Blood culture (08/10/18): no growth after 48 hours X2 * Urine culture (08/11/18): no growth * IV abx Status: Acute (3) Prophylactic measure Assessment & Plan: * chemical anticoagulation per surgery * Protonix 40mg IV q daily Status: Acute
--- NOTE | 2018-08-12 08:04 | CP.PCM.PN ---
<Marilee Hawley - Last Filed: 08/12/18 08:18> Subjective - Date & Time of Evaluation Date of Evaluation: 08/12/18 Time of Evaluation: 08:03 - Subjective Subjective: General Surgery Dr. Schuler Pt seen and examined @bedside. Pt had 1 episode vomiting overnight after admin of Morphine. Otherwise no acute events overnight. Pt denies F/C, nausea. pain controlled. (-)Flatus/BM. tolerating CLD. Nestor 60cc seropurulent x24hrs Objective - Vital Signs/Intake and Output Vital Signs (last 24 hours): Temp Pulse Resp BP Pulse Ox 98.9 F 86 20 105/66 95 08/12/18 06:00 08/12/18 00:00 08/12/18 00:00 08/12/18 00:00 08/12/18 00:00 Intake and Output: 08/12/18 08/12/18 06:59 18:59 Intake Total 1250 Output Total 130 Balance 1120 - Medications Medications: Current Medications Acetaminophen (Tylenol 325mg Tab) 975 mg PO Q8H [facility] Last Admin: 08/12/18 03:30 Dose: Not Given Lactated Ringer's (Lactated Ringer's) 1,000 mls @ 120 mls/hr IV .Q8H20M [facility] Last Admin: 08/12/18 05:13 Dose: 120 mls/hr Ciprofloxacin (Cipro 400mg/200ml Dsw) 400 mg in 200 mls @ 133 mls/hr IVPB Q12H [facility]; Protocol Last Admin: 08/12/18 00:00 Dose: 133 mls/hr Metronidazole (Flagyl) 500 mg in 100 mls @ 100 mls/hr IVPB Q8H [facility]; Protocol Last Admin: 08/12/18 06:07 Dose: 100 mls/hr Ketorolac Tromethamine (Toradol) 30 mg IVP Q6 [facility] Stop: 08/17/18 08:16 Lactobacillus Acidophilus (Lactobacillus) 1 cap PO BID [facility] Last Admin: 08/11/18 18:09 Dose: 1 cap Morphine Sulfate (Morphine) 4 mg IVP Q4 PRN PRN Reason: Pain, moderate (4-7) Last Admin: 08/12/18 01:15 Dose: 4 mg Ondansetron HCl (Zofran Inj) 4 mg IVP Q4 PRN PRN Reason: Nausea/Vomiting Pantoprazole Sodium (Protonix Inj) 40 mg IVP DAILY ON LICENSE OF [facility] Last Admin: 08/11/18 10:33 Dose: Not Given Sennosides (Senokot Tab) 8.6 mg PO DAILY ON LICENSE OF [facility] - Labs Labs: 08/11/18 07:34 08/11/18 07:34 PT 15.6 SECONDS (9.7-12.2) H 08/11/18 07:33 INR 1.4 08/11/18 07:33 APTT 33 SECONDS (21-34) 08/11/18 07:33 - Constitutional Appears: Non-toxic, No Acute Distress - Head Exam Head Exam: NORMAL INSPECTION - Eye Exam Eye Exam: Normal appearance - ENT Exam ENT Exam: Mucous Membranes Moist - Respiratory Exam Respiratory Exam: NORMAL BREATHING PATTERN. absent: Accessory Muscle Use, Respiratory Distress - Cardiovascular Exam Cardiovascular Exam: absent: Bradycardia, Tachycardia - GI/Abdominal Exam GI & Abdominal Exam: Firm, Guarding (voluntary), Tenderness (TTP lower abd). absent: Distended, Rebound Additional comments: incisions c/d/i drain in place - Extremities Exam Extremities Exam: Normal Inspection - Neurological Exam Neurological Exam: Alert, Awake, Oriented x3 - Psychiatric Exam Psychiatric exam: Normal Affect, Normal Mood - Skin Skin Exam: Dry, Intact, Normal Color, Warm Assessment and Plan - Assessment and Plan (Free Text) Assessment: 53 y/o M found to have perforated appendix POD#1 s/p laparoscopic appendectomy Plan: - cont CLD - monitor drain output - added toradol for pain management - cont anti-emetic - maintenance IVF - cont IV abx for 2 more days then PO for total of 7days - encourage OOB to chair/Amb/IS use - GI/DVT PPx Pt discussed w/ Dr. Harini Hawley DO PGY3 <Oliverio Schuler - Last Filed: 08/16/18 13:38> Subjective - Subjective Subjective: All medical record entries made by the resident were at my direction. I have reviewed the chart and agree that the record accurately reflects my personal pe rformance of the history, physical exam, medical decision making. I have also personally directed, reviewed, and agree with the resident note Objective - Vital Signs/Intake and Output Vital Signs (last 24 hours): Temp Pulse Resp BP Pulse Ox 98.8 F 61 20 106/64 96 08/15/18 07:37 08/15/18 07:37 08/15/18 07:37 08/15/18 07:37 08/15/18 07:37 - Labs Labs: 08/15/18 06:51 08/15/18 06:51 PT 15.6 SECONDS (9.7-12.2) H 08/11/18 07:33 INR 1.4 08/11/18 07:33 APTT 33 SECONDS (21-34) 08/11/18 07:33
[2018-08-12 08:49] LABS: BASO % 0.2 % (0.0-2.0); HEMOGLOBIN 12.1 g/dL (12.0-18.0); LYMPH # 1.1 K/uL (1.0-4.3); LYMPH % 13.3 % (20.0-40.0); MEAN CELL VOLUME 85.9 fL (80.0-94.0); MEAN CORPUSCULAR HEMOGLOBIN 28.2 pg (27.0-31.0); MEAN CORPUSCULAR HGB CONC 32.9 g/dL (33.0-37.0); MEAN PLATELET VOLUME 7.9 fL (7.2-11.7); MONO # 0.4 K/uL (0.0-0.8); MONO % 5.3 % (0.0-10.0); NEUT # 6.8 K/uL (1.8-7.0); NEUT % 81.2 % (50.0-75.0); NRBC % 0.1 % (0.0-2.0); RBC 4.29 Mil/uL (4.40-5.90); RED CELL DISTRIBUTION WIDTH 13.1 % (11.5-14.5); WHITE BLOOD COUNT 8.3 K/uL (4.8-10.8)
[2018-08-12 09:07] LABS: ALB/GLOB RATIO 0.9 (1.0-2.1); ALBUMIN 3.2 g/dL (3.5-5.0); ALT/SGPT 27 U/L (21-72); AST/SGOT 28 U/L (17-59); BLOOD UREA NITROGEN 14 mg/dL (9-20); CALCIUM 8.1 mg/dl (8.6-10.4); GFR NON-AFRICAN AMERICAN > 60
[2018-08-12] MEDS: Lactobacillus Acidophilus 500 MU Cap PO SCH ×2 (09:47→17:50)
[2018-08-12] MEDS ORDERED: Potassium Chloride 20 mEq/15 ml LIQ UD PO STA (10:07)
[2018-08-12] MEDS: Ciprofloxacin 400mg/200ml D5W 400 MG/200 ML BAG IVPB SCH ×2 (11:27)
[2018-08-12] MEDS: Piperacillin/Tazobact 3.375 GM in Sodium Chloride 100 ML IVPB SCH ×2 (13:35→21:24)
[2018-08-12 21:15] LABS: SQUAMOUS EPITHIAL < 1 /hpf (0-5); URINE BACTERIA FEW (<OCC); URINE BILIRUBIN NEGATIVE (NEGATIVE); URINE BLOOD NEGATIVE (NEGATIVE); URINE CLARITY Hazy (Clear); URINE GLUCOSE (UA) NORMAL (Normal); URINE LEUKOCYTE ESTERASE 1+ Leu/uL (Negative); URINE PROTEIN 1+ mg/dL (NEGATIVE)
[2018-08-12 21:20] LABS: URINE COLOR YELLOW (YELLOW)
[2018-08-13] MEDS: Lactated Ringer's 1,000 ML IV SCH ×3 (01:00→17:50)
[2018-08-13] MEDS: Piperacillin/Tazobact 3.375 GM in Sodium Chloride 100 ML IVPB SCH (05:12)
[2018-08-13] MEDS: metroNIDAZOLE IV 500 mg/100 ml 500 MG/100 ML BAG IVPB SCH ×3 (06:28→23:06)
[2018-08-13 07:28] LABS: BASO % 0.4 % (0.0-2.0); EOS # 0.1 K/uL (0.0-0.7); EOS % 2.6 % (0.0-4.0); HEMOGLOBIN 11.7 g/dL (12.0-18.0); LYMPH # 0.9 K/uL (1.0-4.3); LYMPH % 16.8 % (20.0-40.0); MEAN CORPUSCULAR HGB CONC 34.2 g/dL (33.0-37.0); MONO # 0.4 K/uL (0.0-0.8); MONO % 8.2 % (0.0-10.0); NEUT # 3.7 K/uL (1.8-7.0); RBC 4.03 Mil/uL (4.40-5.90); WHITE BLOOD COUNT 5.2 K/uL (4.8-10.8)
--- NOTE | 2018-08-13 07:44 | CP.PCM.PN ---
<JuanDuke - Last Filed: 08/13/18 15:41> Subjective - Date & Time of Evaluation Date of Evaluation: 08/13/18 Time of Evaluation: 07:44 - Subjective Subjective: HOSPITALIST SERVICE Pt s/e at bedside, reports dark urines yesterday and throat discomfort while swallowing, denies cough fevers chills chest pain SOB. Pt says abd pain is iomproving and he's been ambulating well, reports good BM normal character. Objective - Vital Signs/Intake and Output Vital Signs (last 24 hours): Temp Pulse Resp BP Pulse Ox 98.1 F 78 20 106/66 97 08/13/18 07:35 08/13/18 07:35 08/13/18 07:35 08/13/18 07:35 08/13/18 07:35 Intake and Output: 08/13/18 08/13/18 06:59 18:59 Intake Total 1440 Output Total 95 130 Balance 1345 -130 - Medications Medications: Current Medications Acetaminophen (Tylenol 325mg Tab) 975 mg PO Q8H [facility] Last Admin: 08/13/18 03:30 Dose: Not Given Lactated Ringer's (Lactated Ringer's) 1,000 mls @ 120 mls/hr IV .Q8H20M [facility] Last Admin: 08/13/18 01:00 Dose: Not Given Metronidazole (Flagyl) 500 mg in 100 mls @ 100 mls/hr IVPB Q8H [facility]; Protocol Last Admin: 08/13/18 06:28 Dose: 100 mls/hr Piperacillin Sod/Tazobactam (Sod 3.375 gm/ Sodium Chloride) 100 mls @ 200 mls/hr IVPB Q8H [facility]; Protocol Last Admin: 08/13/18 05:12 Dose: 200 mls/hr Ketorolac Tromethamine (Toradol) 30 mg IVP Q6 [facility] Stop: 08/17/18 08:16 Last Admin: 08/13/18 06:48 Dose: Not Given Lactobacillus Acidophilus (Lactobacillus) 1 cap PO BID [facility] Last Admin: 08/12/18 17:50 Dose: 1 cap Morphine Sulfate (Morphine) 4 mg IVP Q4 PRN PRN Reason: Pain, moderate (4-7) Last Admin: 08/12/18 01:15 Dose: 4 mg Ondansetron HCl (Zofran Inj) 4 mg IVP Q4 PRN PRN Reason: Nausea/Vomiting Pantoprazole Sodium (Protonix Inj) 40 mg IVP DAILY [facility] Last Admin: 08/12/18 09:46 Dose: 40 mg Sennosides (Senokot Tab) 8.6 mg PO DAILY [facility] Last Admin: 08/12/18 09:47 Dose: 8.6 mg - Labs Labs: 08/13/18 07:10 08/12/18 08:41 PT 15.6 SECONDS (9.7-12.2) H 08/11/18 07:33 INR 1.4 08/11/18 07:33 APTT 33 SECONDS (21-34) 08/11/18 07:33 - Additional Findings Additional findings: - Constitutional Appears: Non-toxic, In Acute Distress - Head Exam Head Exam: NORMAL INSPECTION - Eye Exam Eye Exam: EOMI - ENT Exam ENT Exam: Mucous Membranes Moist - Respiratory Exam Respiratory Exam: Clear to Ausculation Bilateral, NORMAL BREATHING PATTERN. absent: Rales, Rhonchi - Cardiovascular Exam Cardiovascular Exam: REGULAR RHYTHM, +S1, +S2 - GI/Abdominal Exam GI & Abdominal Exam: non distended, tender to deep palpation L sided drain: 160cc of yellow serous fluid - Extremities Exam Extremities Exam: absent: Pedal Edema, Tenderness - Neurological Exam Neurological Exam: Alert, Awake, Oriented x3 - Skin Skin Exam: Dry, Normal Color, Warm Assessment and Plan - Assessment and Plan (Free Text) Assessment: 53M admitted for perforated appendicitis Perforated Appendix Assessment & Plan: General surgery on board help appreciated POD#3 exlap appendectomy advancing to soft food diet LR's @ 120 Maxipime 1g q8 IVPB Flagyl 500 q8 IVPB Zofran 4 IV q4 Morphine 4mg IVP PRN q4 CT scan abdomen/pelvis IV contrast: perf appndx Status: Acute Fever Assessment & Plan: afebrile overnight POD#3 exlap appendectomy Last procal 4.41 f/u AM Blood cultures neg 24hrs pending body fluid cultures and AFB cultures Zosyn + Flagyl IVPB Tylenol 975 q8 Status: Acute Dark Urines Assessment & Plan: UA leuk E +1 no blood no casts Maxipime + Flagyl IV ABx Cr wnl monitor status: acute Prophylactic measure Assessment & Plan: pt ambulatory restating anticoag pending GenSx OK soft food Protonix 40mg IV daily Status: Acute <CatarinoRaysa Casas - Last Filed: 08/13/18 16:55> Objective - Vital Signs/Intake and Output Vital Signs (last 24 hours): Temp Pulse Resp BP Pulse Ox 99.2 F 83 20 118/77 96 08/13/18 16:00 08/13/18 16:00 08/13/18 16:00 08/13/18 16:00 08/13/18 16:00 Intake and Output: 08/13/18 08/13/18 06:59 18:59 Intake Total 1440 Output Total 95 130 Balance 1345 -130 - Medications Medications: Current Medications Acetaminophen (Tylenol 325mg Tab) 975 mg PO Q8H [facility] Last Admin: 08/13/18 10:57 Dose: Not Given Benzocaine/Menthol (Cepacol Sore Throat) 1 brannon MT TID PRN PRN Reason: Sore Throat Enoxaparin Sodium (Lovenox) 40 mg SC DAILY [facility] Last Admin: 08/13/18 09:35 Dose: 40 mg Lactated Ringer's (Lactated Ringer's) 1,000 mls @ 120 mls/hr IV .Q8H20M [facility] Last Admin: 08/13/18 09:37 Dose: 120 mls/hr Metronidazole (Flagyl) 500 mg in 100 mls @ 100 mls/hr IVPB Q8H [facility]; Protocol Last Admin: 08/13/18 14:07 Dose: 100 mls/hr Cefepime HCl 1 gm/ Sodium (Chloride) 50 mls @ 100 mls/hr IVPB Q8H [facility]; Protocol Last Admin: 08/13/18 10:21 Dose: 100 mls/hr Ketorolac Tromethamine (Toradol) 30 mg IVP Q6 [facility] Stop: 08/17/18 08:16 Last Admin: 08/13/18 11:40 Dose: Not Given Lactobacillus Acidophilus (Lactobacillus) 1 cap PO BID [facility] Last Admin: 08/13/18 09:34 Dose: 1 cap Morphine Sulfate (Morphine) 4 mg IVP Q4 PRN PRN Reason: Pain, moderate (4-7) Last Admin: 08/12/18 01:15 Dose: 4 mg Ondansetron HCl (Zofran Inj) 4 mg IVP Q4 PRN PRN Reason: Nausea/Vomiting Pantoprazole Sodium (Protonix Inj) 40 mg IVP DAILY [facility] Last Admin: 08/13/18 09:35 Dose: 40 mg Sennosides (Senokot Tab) 8.6 mg PO DAILY [facility] Last Admin: 08/13/18 09:34 Dose: 8.6 mg - Labs Labs: 08/13/18 07:10 08/13/18 10:06 PT 15.6 SECONDS (9.7-12.2) H 08/11/18 07:33 INR 1.4 08/11/18 07:33 APTT 33 SECONDS (21-34) 08/11/18 07:33 Assessment and Plan (1) Abdominal pain Status: Acute (2) Fever Status: Acute (3) Prophylactic measure Status: Acute Attending/Attestation - Attestation I have personally seen and examined this patient.: Yes I have fully participated in the care of the patient.: Yes I have reviewed all pertinent clinical information, including history, physical exam and plan: Yes Notes (Text): Patient seen, examined and case discussed with day-time resident. Patient seen this morning. Patient reporting incision pain tender to palpation. Patient's abdomen is soft, nondistended, reports flatus. Wound culture shows E.coli--> not sensitive to Cipro nor Zosyn; We have started Maxipime 1gm IVPB Q8H today; consulted ID as well and continue Flagyl. Assessment/Plan 1.Perforated Appendix Assessment & Plan: * General surgery (Dr. Gómez) on board help appreciated * Infectious Disease (Dr. Fowler) on board help appreciated * POD#2 exlap appendectomy * advancing to soft food diet * LR's @ 120cc/hr * Start Maxipime 1g IVPB q8H (active since 08/13/18) * C/w Flagyl 500mg IVPB Q8H (active since 08/10/18) * Zofran 4 IV q4 PRN nausea/vomitting * Morphine 4mg IVP Q4H PRN mod pain * s/p laproscopic appendectomy POD 2 for Perforated appendicitis * Preoperative/intraoperative/postoperative per surgery Status: Acute 2. Fever Assessment & Plan: * Likely secondary to perforated appendix * Afebrile * General surgery (Dr. Gómez) on board help appreciated * Infectious Disease (Dr. Fowler) on board help appreciated * POD#2 exlap appendectomy * advancing to soft food diet * LR's @ 120cc/hr * Start Maxipime 1g IVPB q8H (active since 08/13/18) * C/w Flagyl 500mg IVPB Q8H (active since 08/10/18) * Zofran 4 IV q4 PRN nausea/vomitting * Morphine 4mg IVP Q4H PRN mod pain * s/p laproscopic appendectomy POD 2 for Perforated appendicitis * Preoperative/intraoperative/postoperative per surgery * Blood culture (08/10/18): no growth after 24hours X2 * Urine culture (08/11/18): no growth * Wound Culture (08/11/18). Ecoli Status: Acute 3. Dark Urines Assessment & Plan: * UA leuk E +1 no blood no casts * Urine culture: no growth * Patient is on IV abx status: acute 4. Prophylactic measure Assessment & Plan: * Ambulatory * Lovenox 40mg subq daily * Protonix 40mg IV qdaily * Florastor 250mg PO BID * IV fluids Status: Acute
[2018-08-13] MEDS ORDERED: Potassium Chloride 20 mEq/15 ml LIQ UD PO ONE (07:45)
--- NOTE | 2018-08-13 08:00 | CP.PCM.PN ---
<Rakan Sandoval - Last Filed: 08/13/18 07:57> Subjective - Date & Time of Evaluation Date of Evaluation: 08/13/18 Time of Evaluation: 07:57 - Subjective Subjective: SURGERY NOTE FOR DR. HOUSTON 53M seen and examined at bedside. Patient doing well, states abdominal pain is improving, denies nausea or vomiting, denies fevers or chills. He is tolerating current liquid diet. Objective - Vital Signs/Intake and Output Vital Signs (last 24 hours): Temp Pulse Resp BP Pulse Ox 98.1 F 78 20 106/66 97 08/13/18 07:35 08/13/18 07:35 08/13/18 07:35 08/13/18 07:35 08/13/18 07:35 Intake and Output: 08/13/18 08/13/18 06:59 18:59 Intake Total 1440 Output Total 95 130 Balance 1345 -130 - Medications Medications: Current Medications Acetaminophen (Tylenol 325mg Tab) 975 mg PO Q8H [facility] Last Admin: 08/13/18 03:30 Dose: Not Given Lactated Ringer's (Lactated Ringer's) 1,000 mls @ 120 mls/hr IV .Q8H20M [facility] Last Admin: 08/13/18 01:00 Dose: Not Given Metronidazole (Flagyl) 500 mg in 100 mls @ 100 mls/hr IVPB Q8H [facility]; Protocol Last Admin: 08/13/18 06:28 Dose: 100 mls/hr Piperacillin Sod/Tazobactam (Sod 3.375 gm/ Sodium Chloride) 100 mls @ 200 mls/hr IVPB Q8H [facility]; Protocol Last Admin: 08/13/18 05:12 Dose: 200 mls/hr Ketorolac Tromethamine (Toradol) 30 mg IVP Q6 [facility] Stop: 08/17/18 08:16 Last Admin: 08/13/18 06:48 Dose: Not Given Lactobacillus Acidophilus (Lactobacillus) 1 cap PO BID [facility] Last Admin: 08/12/18 17:50 Dose: 1 cap Morphine Sulfate (Morphine) 4 mg IVP Q4 PRN PRN Reason: Pain, moderate (4-7) Last Admin: 08/12/18 01:15 Dose: 4 mg Ondansetron HCl (Zofran Inj) 4 mg IVP Q4 PRN PRN Reason: Nausea/Vomiting Pantoprazole Sodium (Protonix Inj) 40 mg IVP DAILY [facility] Last Admin: 08/12/18 09:46 Dose: 40 mg Sennosides (Senokot Tab) 8.6 mg PO DAILY [facility] Last Admin: 08/12/18 09:47 Dose: 8.6 mg - Labs Labs: 08/13/18 07:10 08/12/18 08:41 PT 15.6 SECONDS (9.7-12.2) H 08/11/18 07:33 INR 1.4 08/11/18 07:33 APTT 33 SECONDS (21-34) 08/11/18 07:33 - Constitutional Appears: Non-toxic, No Acute Distress - Respiratory Exam Respiratory Exam: Clear to Ausculation Bilateral, NORMAL BREATHING PATTERN - Cardiovascular Exam Cardiovascular Exam: REGULAR RHYTHM, +S1, +S2 - GI/Abdominal Exam GI & Abdominal Exam: Soft, Tenderness (mildly, diffusely). absent: Distended, Firm, Guarding, Rigid, Rebound Additional comments: - drain - 140cc cloudy serous fluid - Incision CDI - Neurological Exam Neurological Exam: Alert, Awake - Skin Skin Exam: Dry, Intact, Normal Color, Warm Assessment and Plan - Assessment and Plan (Free Text) Assessment: 53M s/p laparoscopic appendectomy POD#2 Plan: - Continue IV antibiotics - OOB and ambulating - Advance diet as tolerated - Monitor miguel output Further recs discuss with Dr. Sammie Sandoval, PGY3 <Oliverio Houston N - Last Filed: 08/16/18 13:36> Subjective - Subjective Subjective: All medical record entries made by the resident were at my direction. I have reviewed the chart and agree that the record accurately reflects my personal performance of the history, physical exam, medical decision making. I have also personally directed, reviewed, and agree with the resident note Objective - Vital Signs/Intake and Output Vital Signs (last 24 hours): Temp Pulse Resp BP Pulse Ox 98.8 F 61 20 106/64 96 08/15/18 07:37 08/15/18 07:37 08/15/18 07:37 08/15/18 07:37 08/15/18 07:37 - Labs Labs: 08/15/18 06:51 08/15/18 06:51 PT 15.6 SECONDS (9.7-12.2) H 08/11/18 07:33 INR 1.4 08/11/18 07:33 APTT 33 SECONDS (21-34) 08/11/18 07:33
[2018-08-13] MEDS: Lactobacillus Acidophilus 500 MU Cap PO SCH ×2 (09:34→17:57)
[2018-08-13] MEDS: Enoxaparin 40 mg Syringe SC SCH (09:35)
[2018-08-13] MEDS ORDERED: Pneumococcal 23-Valent Vaccine IM ONE (10:00)
[2018-08-13] MEDS ORDERED: Influenza Vaccine 60 mcg/0.5 mL SYR (4YR UP) IM ONE (10:00)
[2018-08-13] MEDS ORDERED: Cefepime 1 GM in Sodium Chloride 0.9% 50 ML IVPB SCH (10:00)
[2018-08-13 10:39] LABS: ALB/GLOB RATIO 0.9 (1.0-2.1); ALBUMIN 2.9 g/dL (3.5-5.0)
[2018-08-13 11:16] LABS: ALT/SGPT 21 U/L (21-72); AST/SGOT 25 U/L (17-59); BLOOD UREA NITROGEN 17 mg/dL (9-20); CALCIUM 8.1 mg/dl (8.6-10.4); GFR NON-AFRICAN AMERICAN > 60
[2018-08-13] MEDS ORDERED: Benzocaine/Menthol (Cepacol) Lozenge MT PRN (14:24)
[2018-08-13] MEDS: Cefepime 1 GM in Sodium Chloride 0.9% 100 ML IVPB SCH (18:03)
[2018-08-13] MEDS ORDERED: Potassium & Sodium Phosphate PO ONE (20:16)
[2018-08-14] MEDS: Lactated Ringer's 1,000 ML IV SCH ×2 (00:25→02:28)
[2018-08-14] MEDS: Cefepime 1 GM in Sodium Chloride 0.9% 100 ML IVPB SCH (01:17)
[2018-08-14] MEDS: metroNIDAZOLE IV 500 mg/100 ml 500 MG/100 ML BAG IVPB SCH (06:34)
--- NOTE | 2018-08-14 07:47 | CP.PCM.PN ---
<Duke Martinez - Last Filed: 08/14/18 07:50> Subjective - Date & Time of Evaluation Date of Evaluation: 08/14/18 Time of Evaluation: 07:41 - Subjective Subjective: HOSPITALIST SERVICE Pt s/e at bedside, reports improvement of abd pain, pt reports good BMs since he started eating outside food, lots of fruits. denies FC NV CP Objective - Vital Signs/Intake and Output Vital Signs (last 24 hours): Temp Pulse Resp BP Pulse Ox 97.8 F 82 20 108/71 95 08/14/18 00:03 08/14/18 00:03 08/14/18 00:03 08/14/18 00:03 08/14/18 00:03 Intake and Output: 08/14/18 08/14/18 06:59 18:59 Intake Total 1310 1110 Output Total 180 100 Balance 1130 1010 - Medications Medications: Current Medications Acetaminophen (Tylenol 325mg Tab) 975 mg PO Q8H [facility] Last Admin: 08/14/18 03:30 Dose: Not Given Benzocaine/Menthol (Cepacol Sore Throat) 1 brannon MT TID PRN PRN Reason: Sore Throat Enoxaparin Sodium (Lovenox) 40 mg SC DAILY [facility] Last Admin: 08/13/18 09:35 Dose: 40 mg Lactated Ringer's (Lactated Ringer's) 1,000 mls @ 120 mls/hr IV .Q8H20M [facility] Last Admin: 08/14/18 02:28 Dose: Not Given Metronidazole (Flagyl) 500 mg in 100 mls @ 100 mls/hr IVPB Q8H [facility]; Protocol Last Admin: 08/14/18 06:34 Dose: 100 mls/hr Cefepime HCl 1 gm/ Sodium (Chloride) 100 mls @ 100 mls/hr IVPB Q8H [facility]; Protocol Last Admin: 08/14/18 01:17 Dose: 100 mls/hr Ketorolac Tromethamine (Toradol) 30 mg IVP Q6 [facility] Stop: 08/17/18 08:16 Last Admin: 08/14/18 05:28 Dose: Not Given Lactobacillus Acidophilus (Lactobacillus) 1 cap PO BID [facility] Last Admin: 08/13/18 17:57 Dose: 1 cap Morphine Sulfate (Morphine) 4 mg IVP Q4 PRN PRN Reason: Pain, moderate (4-7) Last Admin: 08/12/18 01:15 Dose: 4 mg Ondansetron HCl (Zofran Inj) 4 mg IVP Q4 PRN PRN Reason: Nausea/Vomiting Pantoprazole Sodium (Protonix Inj) 40 mg IVP DAILY [facility] Last Admin: 08/13/18 09:35 Dose: 40 mg Sennosides (Senokot Tab) 8.6 mg PO DAILY [facility] Last Admin: 08/13/18 09:34 Dose: 8.6 mg - Labs Labs: 08/13/18 07:10 08/13/18 10:06 PT 15.6 SECONDS (9.7-12.2) H 08/11/18 07:33 INR 1.4 08/11/18 07:33 APTT 33 SECONDS (21-34) 08/11/18 07:33 - Additional Findings Additional findings: - Constitutional Appears: Non-toxic, In Acute Distress - Head Exam Head Exam: NORMAL INSPECTION - Eye Exam Eye Exam: EOMI - ENT Exam ENT Exam: Mucous Membranes Moist - Respiratory Exam Respiratory Exam: Clear to Ausculation Bilateral, NORMAL BREATHING PATTERN. absent: Rales, Rhonchi - Cardiovascular Exam Cardiovascular Exam: REGULAR RHYTHM, +S1, +S2 - GI/Abdominal Exam GI & Abdominal Exam: non distended, tender to deep palpation L sided drain: 160cc of yellow serous fluid - Extremities Exam Extremities Exam: absent: Pedal Edema, Tenderness - Neurological Exam Neurological Exam: Alert, Awake, Oriented x3 - Skin Skin Exam: Dry, Normal Color, Warm Assessment and Plan - Assessment and Plan (Free Text) Assessment: 53M admitted for perforated appendicitis Perforated Appendix Assessment & Plan: General surgery on board help appreciated POD#3 exlap appendectomy advancing to soft food diet LR's @ 120 Maxipime 1g q8 IVPB Flagyl 500 q8 IVPB Zofran 4 IV q4 Morphine 4mg IVP PRN q4 CT scan abdomen/pelvis IV contrast: perf appndx Status: Acute Fever Assessment & Plan: afebrile overnight POD#3 exlap appendectomy Last procal 4.41 f/u AM Blood cultures neg 24hrs pending body fluid cultures and AFB cultures Maxipime + Flagyl IVPB Tylenol 975 q8 Status: Acute Dark Urines Assessment & Plan: UA leuk E +1 no blood no casts Maxipime + Flagyl IV ABx Cr wnl monitor status: acute Prophylactic measure Assessment & Plan: pt ambulatory restating anticoag pending GenSx OK soft food Protonix 40mg IV daily Status: Acute <Raysa Toribio V - Last Filed: 08/14/18 11:43> Objective - Vital Signs/Intake and Output Vital Signs (last 24 hours): Temp Pulse Resp BP Pulse Ox 97.9 F 72 20 103/61 96 08/14/18 07:54 08/14/18 11:18 08/14/18 07:54 08/14/18 07:54 08/14/18 11:18 Intake and Output: 08/14/18 08/14/18 06:59 18:59 Intake Total 1310 1110 Output Total 180 100 Balance 1130 1010 - Medications Medications: Current Medications Acetaminophen (Tylenol 325mg Tab) 975 mg PO Q8H [facility] Last Admin: 08/14/18 11:04 Dose: Not Given Benzocaine/Menthol (Cepacol Sore Throat) 1 brannon MT TID PRN PRN Reason: Sore Throat Enoxaparin Sodium (Lovenox) 40 mg SC DAILY [facility] Last Admin: 08/14/18 09:37 Dose: 40 mg Cefepime HCl 1 gm/ Dextrose 50 mls @ 100 mls/hr IVPB Q8H [facility]; Protocol Lactobacillus Acidophilus (Lactobacillus) 1 cap PO BID [facility] Last Admin: 08/14/18 09:37 Dose: 1 cap Ondansetron HCl (Zofran Inj) 4 mg IVP Q4 PRN PRN Reason: Nausea/Vomiting Pantoprazole Sodium (Protonix Inj) 40 mg IVP DAILY [facility] Last Admin: 08/14/18 09:36 Dose: 40 mg Potassium Chloride (Klor-Con 10) 20 meq PO ONCE ONE Stop: 08/15/18 09:10 Sennosides (Senokot Tab) 8.6 mg PO DAILY [facility] Last Admin: 08/14/18 09:37 Dose: 8.6 mg - Labs Labs: 08/14/18 08:25 08/14/18 08:25 PT 15.6 SECONDS (9.7-12.2) H 08/11/18 07:33 INR 1.4 08/11/18 07:33 APTT 33 SECONDS (21-34) 08/11/18 07:33 Assessment and Plan (1) Abdominal pain Status: Acute (2) Fever Status: Acute (3) Prophylactic measure Status: Acute Attending/Attestation - Attestation I have personally seen and examined this patient.: Yes I have fully participated in the care of the patient.: Yes I have reviewed all pertinent clinical information, including history, physical exam and plan: Yes Notes (Text): Patient seen, examined and case discussed with day-time resident. Patient seen this morning. Patient reporting incision pain tender to palpation. Patient's abdomen is soft, nondistended, reports flatus. Patient reports he is slowing tolerating diet but remains in good spirits. Patient advised to take pain medication if he needs it. he reports his pain is about 5/10. Please note: surgery had switched patient to augmentin however his wound culture shows it is resistant to Ampicillin. I have switched it back to Maxipime 1gram IV Q 8H which he had been receiving starting yesterday 08/13/18. We will follow-up with ID regarding PO option given resistance to Ampicillin, Ciprofloxacin and Bactrim does not show a good GUERA value for him to be discharge on. Assessment/Plan 1.Perforated Appendix Assessment & Plan: * General surgery (Dr. Gómez) on board help appreciated * Infectious Disease (Dr. Fowler) on board help appreciated * POD#3 exlap appendectomy * advancing to soft food diet * LR's @ 120cc/hr * c/w Maxipime 1g IVPB q8H (active since 08/13/18) * will f/u with ID for best PO option * Morphine 4mg IVP Q4H PRN mod pain * s/p laproscopic appendectomy POD 3 for Perforated appendicitis * Preoperative/intraoperative/postoperative per surgery Status: Acute 2. Fever Assessment & Plan: * Likely secondary to perforated appendix * Afebrile * General surgery (Dr. Gómez) on board help appreciated * Infectious Disease (Dr. Fowler) on board help appreciated * POD#3 exlap appendectomy * advancing to soft food diet * LR's @ 120cc/hr * c/w Maxipime 1g IVPB q8H (active since 08/13/18) * Zofran 4 IV q4 PRN nausea/vomitting * Morphine 4mg IVP Q4H PRN mod pain * s/p laproscopic appendectomy POD 3 for Perforated appendicitis * Preoperative/intraoperative/postoperative per surgery * Blood culture (08/10/18): no growth after 24hours X2 * Urine culture (08/11/18): no growth * Wound Culture (08/11/18). Ecoli * procalcitonin: 4.41-->0.89 Status: Acute 3. Dark Urines Assessment & Plan: * UA leuk E +1 no blood no casts * Urine culture: no growth * Patient is on IV abx status: acute 4. Prophylactic measure Assessment & Plan: * Ambulatory * Lovenox 40mg subq daily * Protonix 40mg IV qdaily * Florastor 250mg PO BID * IV fluids Status: Acute Disposition: will need to f/u id for PO option for discharge planning and when patient is cleared from surgery standpoint for discharge.
[2018-08-14] MEDS ORDERED: Amoxicillin-Clav 500-125 mg Tab PO SCH (08:00)
--- NOTE | 2018-08-14 08:31 | CP.PCM.PN ---
<ChandanMarilee - Last Filed: 08/14/18 09:46> Subjective - Date & Time of Evaluation Date of Evaluation: 08/14/18 Time of Evaluation: 08:29 - Subjective Subjective: General Surgery Dr. Schuler Pt seen and examined @bedside. No acute events overnight. Pt reports intermittent nausea w/ heavy food but denies vomiting. denies F/C, D/C. Pain well controlled. (+)BM/Flatus. tolerating diet. Nestor 310cc serous x24hrs Objective - Vital Signs/Intake and Output Vital Signs (last 24 hours): Temp Pulse Resp BP Pulse Ox 97.9 F 72 20 103/61 96 08/14/18 07:54 08/14/18 07:54 08/14/18 07:54 08/14/18 07:54 08/14/18 07:54 Intake and Output: 08/14/18 08/14/18 06:59 18:59 Intake Total 1310 1110 Output Total 180 100 Balance 1130 1010 - Medications Medications: Current Medications Acetaminophen (Tylenol 325mg Tab) 975 mg PO Q8H [facility] Last Admin: 08/14/18 03:30 Dose: Not Given Amoxicillin/Clavulanate Potassium (Augmentin 500 Mg-125 Mg Tab) 1 tab PO Q12H [facility]; Protocol Stop: 08/18/18 08:01 Benzocaine/Menthol (Cepacol Sore Throat) 1 brannon MT TID PRN PRN Reason: Sore Throat Enoxaparin Sodium (Lovenox) 40 mg SC DAILY [facility] Last Admin: 08/13/18 09:35 Dose: 40 mg Lactated Ringer's (Lactated Ringer's) 1,000 mls @ 120 mls/hr IV .Q8H20M [facility] Last Admin: 08/14/18 02:28 Dose: Not Given Lactobacillus Acidophilus (Lactobacillus) 1 cap PO BID [facility] Last Admin: 08/13/18 17:57 Dose: 1 cap Morphine Sulfate (Morphine) 4 mg IVP Q4 PRN PRN Reason: Pain, moderate (4-7) Last Admin: 08/12/18 01:15 Dose: 4 mg Ondansetron HCl (Zofran Inj) 4 mg IVP Q4 PRN PRN Reason: Nausea/Vomiting Pantoprazole Sodium (Protonix Inj) 40 mg IVP DAILY [facility] Last Admin: 08/13/18 09:35 Dose: 40 mg Sennosides (Senokot Tab) 8.6 mg PO DAILY [facility] Last Admin: 08/13/18 09:34 Dose: 8.6 mg - Labs Labs: 08/13/18 07:10 08/13/18 10:06 PT 15.6 SECONDS (9.7-12.2) H 08/11/18 07:33 INR 1.4 08/11/18 07:33 APTT 33 SECONDS (21-34) 08/11/18 07:33 - Constitutional Appears: Non-toxic, No Acute Distress - Head Exam Head Exam: NORMAL INSPECTION - Eye Exam Eye Exam: Normal appearance - ENT Exam ENT Exam: Mucous Membranes Moist - Respiratory Exam Respiratory Exam: NORMAL BREATHING PATTERN. absent: Accessory Muscle Use, Respiratory Distress - Cardiovascular Exam Cardiovascular Exam: REGULAR RHYTHM. absent: Bradycardia, Tachycardia - GI/Abdominal Exam GI & Abdominal Exam: Distended (minimal), Soft, Tenderness (appropriate vicki- incisional TTP). absent: Firm, Guarding, Rigid Additional comments: incisions c/d/i nestor drain in place - Extremities Exam Extremities Exam: Normal Inspection - Neurological Exam Neurological Exam: Alert, Awake, Oriented x3 - Psychiatric Exam Psychiatric exam: Normal Affect, Normal Mood - Skin Skin Exam: Dry, Intact, Normal Color, Warm Assessment and Plan - Assessment and Plan (Free Text) Assessment: 53 y/o M POD#3 s/p laparoscopic appendectomy Plan: - convert to PO antibiotics for 4days (total 7days abx) - advance diet as tolerated - monitor drain output - f/u AM labs - replace electrolytes PRN - cont pain management - encourage OOB to chair/Amb/IS use Pt discussed with Dr. Harini Hawley DO PGY3 <Oliverio Schuler - Last Filed: 08/16/18 13:35> Subjective - Subjective Subjective: All medical record entries made by the resident were at my direction. I have reviewed the chart and agree that the record accurately reflects my personal performance of the history, physical exam, medical decision making. I have also personally directed, reviewed, and agree with the resident note Objective - Vital Signs/Intake and Output Vital Signs (last 24 hours): Temp Pulse Resp BP Pulse Ox 98.8 F 61 20 106/64 96 08/15/18 07:37 08/15/18 07:37 08/15/18 07:37 08/15/18 07:37 08/15/18 07:37 - Labs Labs: 08/15/18 06:51 08/15/18 06:51 PT 15.6 SECONDS (9.7-12.2) H 08/11/18 07:33 INR 1.4 08/11/18 07:33 APTT 33 SECONDS (21-34) 08/11/18 07:33
[2018-08-14 08:55] LABS: BASO % 0.4 % (0.0-2.0); EOS # 0.1 K/uL (0.0-0.7); HEMOGLOBIN 12.6 g/dL (12.0-18.0); LYMPH # 0.7 K/uL (1.0-4.3); LYMPH % 20.3 % (20.0-40.0); MEAN CELL VOLUME 84.2 fL (80.0-94.0); MEAN CORPUSCULAR HGB CONC 34.4 g/dL (33.0-37.0); MEAN PLATELET VOLUME 7.7 fL (7.2-11.7); MONO # 0.5 K/uL (0.0-0.8); MONO % 12.7 % (0.0-10.0); NEUT # 2.3 K/uL (1.8-7.0); NEUT % 64.6 % (50.0-75.0); RBC 4.34 Mil/uL (4.40-5.90); WHITE BLOOD COUNT 3.6 K/uL (4.8-10.8)
[2018-08-14 09:06] LABS: ALB/GLOB RATIO 0.9 (1.0-2.1); ALBUMIN 2.8 g/dL (3.5-5.0); ALT/SGPT 18 U/L (21-72); AST/SGOT 30 U/L (17-59); BLOOD UREA NITROGEN 17 mg/dL (9-20); CALCIUM 8.2 mg/dl (8.6-10.4); GFR NON-AFRICAN AMERICAN > 60
[2018-08-14] MEDS ORDERED: Magnesium Sulfate 1 gm in D5W 1 GM/100 ML BAG IVPB ONE (09:09)
[2018-08-14] MEDS: Lactobacillus Acidophilus 500 MU Cap PO SCH ×2 (09:37→17:47)
[2018-08-14] MEDS: Enoxaparin 40 mg Syringe SC SCH (09:37)
[2018-08-14] MEDS: Cefepime IV 1 gm in Dextrose 1 GM/50 ML BAG IVPB SCH ×2 (12:23→19:49)
--- NOTE | 2018-08-14 16:21 | CP.PCM.CON ---
History of Present Illness - History of Present Illness History of Present Illness: s/p explor lap appendectomy feels ok no fever c/s noted IV rx in progress Review of Systems - Review of Systems All systems: reviewed and no additional remarkable complaints except Past Patient History - Past Medical History & Family History Past Medical History?: No - Past Social History Smoking Status: Never Smoked - MUSCULOSKELETAL/RHEUMATOLOGICAL Hx Falls: No - PSYCHIATRIC Hx Substance Use: No - SURGICAL HISTORY Hx Surgeries: Yes Hx Orthopedic Surgery: Yes (LEFT HAND) - ANESTHESIA Hx Anesthesia: Yes Hx Anesthesia Reactions: No Meds Allergies/Adverse Reactions: Allergies Allergy/AdvReac Type Severity Reaction Status Date / Time No Known Allergies Allergy Verified 08/10/18 14:53 - Medications Medications: Current Medications Acetaminophen (Tylenol 325mg Tab) 975 mg PO Q8H [facility] Last Admin: 08/14/18 11:04 Dose: Not Given Benzocaine/Menthol (Cepacol Sore Throat) 1 brannon MT TID PRN PRN Reason: Sore Throat Enoxaparin Sodium (Lovenox) 40 mg SC DAILY [facility] Last Admin: 08/14/18 09:37 Dose: 40 mg Cefepime HCl (Maxipime Iv 1 Gm Premix) 1 gm in 50 mls @ 100 mls/hr IVPB Q8H [facility]; Protocol Last Admin: 08/14/18 12:23 Dose: 100 mls/hr Lactobacillus Acidophilus (Lactobacillus) 1 cap PO BID [facility] Last Admin: 08/14/18 09:37 Dose: 1 cap Ondansetron HCl (Zofran Inj) 4 mg IVP Q4 PRN PRN Reason: Nausea/Vomiting Pantoprazole Sodium (Protonix Inj) 40 mg IVP DAILY [facility] Last Admin: 08/14/18 09:36 Dose: 40 mg Potassium Chloride (Klor-Con 10) 20 meq PO ONCE ONE Stop: 08/15/18 09:10 Sennosides (Senokot Tab) 8.6 mg PO DAILY [facility] Last Admin: 08/14/18 09:37 Dose: 8.6 mg Physical Exam - Constitutional Appears: Well - Head Exam Head Exam: ATRAUMATIC, NORMAL INSPECTION, NORMOCEPHALIC - Eye Exam Eye Exam: EOMI, Normal appearance, PERRL Pupil Exam: NORMAL ACCOMODATION, PERRL - ENT Exam ENT Exam: Mucous Membranes Moist, Normal Exam - Neck Exam Neck exam: Positive for: Normal Inspection - Respiratory Exam Respiratory Exam: Clear to Auscultation Bilateral, NORMAL BREATHING PATTERN - Cardiovascular Exam Cardiovascular Exam: REGULAR RHYTHM - GI/Abdominal Exam GI & Abdominal Exam: Diminished Bowel Sounds, Soft, Tenderness. absent: Rigid - Rectal Exam Rectal Exam: Deferred - Exam Exam: NORMAL INSPECTION - Extremities Exam Extremities exam: Positive for: normal inspection - Back Exam Back exam: NORMAL INSPECTION - Neurological Exam Neurological exam: Alert, CN II-XII Intact, Normal Gait, Oriented x3, Reflexes Normal - Psychiatric Exam Psychiatric exam: Normal Affect, Normal Mood - Skin Skin Exam: Dry, Intact, Normal Color, Warm Results - Vital Signs Recent Vital Signs: Last Vital Signs Temp 97.8 F 08/14/18 15:00 Pulse 68 08/14/18 15:00 Resp 20 08/14/18 15:00 BP 105/70 08/14/18 15:00 Pulse Ox 97 08/14/18 15:00 - Labs Result Diagrams: 08/14/18 08:25 08/14/18 08:25 Labs: Laboratory Results - last 24 hr 08/14/18 08/14/18 08/14/18 08:25 08:25 08:25 WBC 3.6 L RBC 4.34 L Hgb 12.6 Hct 36.6 MCV 84.2 MCH 29.0 MCHC 34.4 RDW 13.0 Plt Count 175 MPV 7.7 Neut % (Auto) 64.6 Lymph % (Auto) 20.3 Leake % (Auto) 12.7 H Eos % (Auto) 2.0 Baso % (Auto) 0.4 Neut # (Auto) 2.3 Lymph # (Auto) 0.7 L Leake # (Auto) 0.5 Eos # (Auto) 0.1 Baso # (Auto) 0.0 Sodium 134 Potassium 3.9 Chloride 101 Carbon Dioxide 26 Anion Gap 11 BUN 17 Creatinine 0.7 L Est GFR ( Amer) > 60 Est GFR (Non-Af Amer) > 60 Random Glucose 98 D Calcium 8.2 L Phosphorus 3.0 Magnesium 1.9 Total Bilirubin 0.5 AST 30 ALT 18 L Alkaline Phosphatase 50 Total Protein 6.1 L Albumin 2.8 L Globulin 3.2 Albumin/Globulin Ratio 0.9 L Procalcitonin 0.89 H Assessment & Plan (1) Appendicitis Status: Acute (2) Abdominal pain Status: Acute (3) Fever Status: Acute (4) Ileus, unspecified Status: Acute - Assessment and Plan (Free Text) Assessment: s/p appendectomy improving on IV rx cont iv then PO rx
[2018-08-15] MEDS: Cefepime IV 1 gm in Dextrose 1 GM/50 ML BAG IVPB SCH ×2 (03:58→11:42)
[2018-08-15 06:58] LABS: BASO % 0.4 % (0.0-2.0); EOS # 0.1 K/uL (0.0-0.7); HEMOGLOBIN 11.9 g/dL (12.0-18.0); LYMPH # 0.8 K/uL (1.0-4.3); LYMPH % 22.8 % (20.0-40.0); MEAN CELL VOLUME 82.9 fL (80.0-94.0); MEAN CORPUSCULAR HEMOGLOBIN 28.2 pg (27.0-31.0); MEAN PLATELET VOLUME 7.1 fL (7.2-11.7); MONO # 0.5 K/uL (0.0-0.8); MONO % 12.4 % (0.0-10.0); NEUT # 2.2 K/uL (1.8-7.0); NEUT % 61.4 % (50.0-75.0); NRBC % 0.1 % (0.0-2.0); RBC 4.23 Mil/uL (4.40-5.90); WHITE BLOOD COUNT 3.6 K/uL (4.8-10.8)
[2018-08-15 08:17] LABS: ALB/GLOB RATIO 0.8 (1.0-2.1); ALBUMIN 2.5 g/dL (3.5-5.0); ALT/SGPT 35 U/L (21-72); AST/SGOT 47 U/L (17-59); BLOOD UREA NITROGEN 12 mg/dL (9-20); CALCIUM 7.7 mg/dl (8.6-10.4); GFR NON-AFRICAN AMERICAN > 60
[2018-08-15] MEDS ORDERED: Potassium Chloride 10 mEq ER Tab PO ONE (09:09)
[2018-08-15] MEDS: Enoxaparin 40 mg Syringe SC SCH (09:21)
[2018-08-15] MEDS: Lactobacillus Acidophilus 500 MU Cap PO SCH (09:22)
--- NOTE | 2018-08-15 11:51 | CP.PCM.PN ---
Subjective - Date & Time of Evaluation Date of Evaluation: 08/15/18 Time of Evaluation: 08:00 - Subjective Subjective: seen on rounds orders written Objective - Vital Signs/Intake and Output Vital Signs (last 24 hours): Temp Pulse Resp BP Pulse Ox 98.8 F 61 20 106/64 96 08/15/18 07:37 08/15/18 07:37 08/15/18 07:37 08/15/18 07:37 08/15/18 07:37 Intake and Output: 08/15/18 08/15/18 06:59 18:59 Intake Total 680 Output Total 155 Balance 525 - Medications Medications: Current Medications Acetaminophen (Tylenol 325mg Tab) 975 mg PO Q8H [facility] Last Admin: 08/15/18 11:41 Dose: Not Given Benzocaine/Menthol (Cepacol Sore Throat) 1 brannon MT TID PRN PRN Reason: Sore Throat Enoxaparin Sodium (Lovenox) 40 mg SC DAILY [facility] Last Admin: 08/15/18 09:21 Dose: 40 mg Cefepime HCl (Maxipime Iv 1 Gm Premix) 1 gm in 50 mls @ 100 mls/hr IVPB Q8H [facility]; Protocol Last Admin: 08/15/18 11:42 Dose: 100 mls/hr Lactobacillus Acidophilus (Lactobacillus) 1 cap PO BID [facility] Last Admin: 08/15/18 09:22 Dose: 1 cap Ondansetron HCl (Zofran Inj) 4 mg IVP Q4 PRN PRN Reason: Nausea/Vomiting Last Admin: 08/14/18 17:51 Dose: 4 mg Pantoprazole Sodium (Protonix Inj) 40 mg IVP DAILY [facility] Last Admin: 08/15/18 09:21 Dose: 40 mg Sennosides (Senokot Tab) 8.6 mg PO DAILY [facility] Last Admin: 08/15/18 09:21 Dose: 8.6 mg - Labs Labs: 08/15/18 06:51 08/15/18 06:51 PT 15.6 SECONDS (9.7-12.2) H 08/11/18 07:33 INR 1.4 08/11/18 07:33 APTT 33 SECONDS (21-34) 08/11/18 07:33 Assessment and Plan (1) Appendicitis Status: Acute (2) Abdominal pain Status: Acute (3) Fever Status: Acute (4) Ileus, unspecified Status: Acute
--- NOTE | 2018-08-15 13:49 | CP.PCM.DIS ---
Provider - Provider Date of Admission: 08/10/18 20:08 Attending physician: Elmer Kraus MD Consults: 08/10/18 21:15 General Surgery Consult Routine Comment: Consulting Provider: Oliverio Schuler Consulting Physician: Oliverio Schuler Reason for Consult: r/o acute abdomen 08/13/18 21:17 Infectious Disease Consult Routine Comment: notifed by resident earlier today Consulting Provider: Deo Fowler Consulting Physician: Deo Fowler Reason for Consult: wound culture; recent abdominal surgery Time Spent in preparation of Discharge (in minutes): 45 Hospital Course - Lab Results Lab Results: Micro Results 08/13/18 18:58 Urine Random Urine Culture - Final No Growth (<1,000 CFU/ML) 08/10/18 19:55 Blood Blood Culture - Preliminary NO GROWTH AFTER 4 DAYS 08/10/18 19:54 Blood Blood Culture - Preliminary NO GROWTH AFTER 4 DAYS 08/11/18 17:20 Urine,Clean Catch Urine Culture - Final No Growth (<1,000 CFU/ML) 08/11/18 14:12 Other: Please Indicate Gram Stain - Final 08/11/18 14:12 Other: Please Indicate Body Fluid Culture - Final Escherichia Coli Most Recent Lab Values WBC 3.6 K/uL (4.8-10.8) L 08/15/18 06:51 RBC 4.23 Mil/uL (4.40-5.90) L 08/15/18 06:51 Hgb 11.9 g/dL (12.0-18.0) L 08/15/18 06:51 Hct 35.1 % (35.0-51.0) 08/15/18 06:51 MCV 82.9 fL (80.0-94.0) 08/15/18 06:51 MCH 28.2 pg (27.0-31.0) 08/15/18 06:51 MCHC 34.0 g/dL (33.0-37.0) 08/15/18 06:51 RDW 13.0 % (11.5-14.5) 08/15/18 06:51 Plt Count 170 K/uL (130-400) 08/15/18 06:51 MPV 7.1 fL (7.2-11.7) L 08/15/18 06:51 Neut % (Auto) 61.4 % (50.0-75.0) 08/15/18 06:51 Lymph % (Auto) 22.8 % (20.0-40.0) 08/15/18 06:51 Dickson % (Auto) 12.4 % (0.0-10.0) H 08/15/18 06:51 Eos % (Auto) 3.0 % (0.0-4.0) 08/15/18 06:51 Baso % (Auto) 0.4 % (0.0-2.0) 08/15/18 06:51 Neut # (Auto) 2.2 K/uL (1.8-7.0) 08/15/18 06:51 Lymph # (Auto) 0.8 K/uL (1.0-4.3) L 08/15/18 06:51 Dickson # (Auto) 0.5 K/uL (0.0-0.8) 08/15/18 06:51 Eos # (Auto) 0.1 K/uL (0.0-0.7) 08/15/18 06:51 Baso # (Auto) 0.0 K/uL (0.0-0.2) 08/15/18 06:51 Differential Comment 08/11/18 07:34 PT 15.6 SECONDS (9.7-12.2) H 08/11/18 07:33 INR 1.4 08/11/18 07:33 APTT 33 SECONDS (21-34) 08/11/18 07:33 pO2 16 mm/Hg (30-55) L 08/10/18 17:12 VBG pH 7.39 (7.32-7.43) 08/10/18 17:12 VBG pCO2 49 mmHg (40-60) 08/10/18 17:12 VBG HCO3 25.7 mmol/L 08/10/18 17:12 VBG Total CO2 31.2 mmol/L (22-28) H 08/10/18 17:12 VBG O2 Sat (Calc) 37.8 % (40-65) L 08/10/18 17:12 VBG Base Excess 3.7 mmol/L (0.0-2.0) H 08/10/18 17:12 VBG Potassium 3.6 mmol/L (3.6-5.2) 08/10/18 17:12 Sodium 137.0 mmol/l (132-148) 08/10/18 17:12 Chloride 106.0 mmol/L (98-107) 08/10/18 17:12 Glucose 111 mg/dl (75-110) H 08/10/18 17:12 Lactate 1.1 mmol/L (0.7-2.1) 08/10/18 17:12 Sodium 132 mmol/L (132-148) 08/15/18 06:51 Potassium 3.8 mmol/L (3.6-5.2) 08/15/18 06:51 Chloride 102 mmol/L (98-107) 08/15/18 06:51 Carbon Dioxide 25 mmol/L (22-30) 08/15/18 06:51 Anion Gap 9 (10-20) L 08/15/18 06:51 BUN 12 mg/dL (9-20) 08/15/18 06:51 Creatinine 0.7 mg/dL (0.8-1.5) L 08/15/18 06:51 Est GFR ( Amer) > 60 08/15/18 06:51 Est GFR (Non-Af Amer) > 60 08/15/18 06:51 Random Glucose 87 mg/dL (75-110) 08/15/18 06:51 Calcium 7.7 mg/dl (8.6-10.4) L 08/15/18 06:51 Phosphorus 2.8 mg/dL (2.5-4.5) 08/15/18 06:51 Magnesium 1.9 mg/dL (1.6-2.3) 08/15/18 06:51 Total Bilirubin 0.4 mg/dL (0.2-1.3) 08/15/18 06:51 AST 47 U/L (17-59) 08/15/18 06:51 ALT 35 U/L (21-72) 08/15/18 06:51 Alkaline Phosphatase 49 U/L (38-126) 08/15/18 06:51 Total Protein 5.7 g/dL (6.3-8.3) L 08/15/18 06:51 Albumin 2.5 g/dL (3.5-5.0) L 08/15/18 06:51 Globulin 3.2 gm/dL (2.2-3.9) 08/15/18 06:51 Albumin/Globulin Ratio 0.8 (1.0-2.1) L 08/15/18 06:51 Lipase 91 U/L (23-300) 08/10/18 17:15 Procalcitonin 0.89 NG/ML (0.19-0.49) H 08/14/18 08:25 Venous Blood Potassium 3.6 mmol/L (3.6-5.2) 08/10/18 17:12 Urine Color Yellow (YELLOW) 08/12/18 21:03 Urine Clarity Hazy (Clear) 08/12/18 21:03 Urine pH 5.0 (5.0-8.0) 08/12/18 21:03 Ur Specific Eolia 1.040 (1.003-1.030) H 08/12/18 21:03 Urine Protein 1+ mg/dL (NEGATIVE) H 08/12/18 21:03 Urine Glucose (UA) Normal mg/dL (Normal) 08/12/18 21:03 Urine Ketones Trace mg/dL (NEGATIVE) 08/12/18 21:03 Urine Blood Negative (NEGATIVE) 08/12/18 21:03 Urine Nitrate Negative (NEGATIVE) 08/12/18 21:03 Urine Bilirubin Negative (NEGATIVE) 08/12/18 21:03 Urine Urobilinogen 2.0 mg/dL (0.2-1.0) 08/12/18 21:03 Ur Leukocyte Esterase 1+ Jane/uL (Negative) H 08/12/18 21:03 Urine WBC (Auto) 5 /hpf (0-5) 08/12/18 21:03 Urine RBC (Auto) 1 /hpf (0-3) 08/12/18 21:03 Ur Squamous Epith Cells < 1 /hpf (0-5) 08/12/18 21:03 Urine Bacteria Few (<OCC) H 08/12/18 21:03 Discharge Exam - Head Exam Head Exam: ATRAUMATIC, NORMAL INSPECTION, NORMOCEPHALIC Discharge Plan - Discharge Medications Prescriptions: Cephalexin [Keflex] 500 mg PO BID #14 capsule Lactobacillus Acidophilus [Lactobacillus] 1 cap PO BID #60 cap Sulfamethoxazole/Trimethoprim [Bactrim DS 800 mg-160 mg] 1 tab PO BID #14 tab - Follow Up Plan Condition: STABLE Disposition: HOME/ ROUTINE
[2018-08-15] MEDS ORDERED: Pneumococcal 23-Valent Vaccine IM ONE (15:00)
[2018-08-15] MEDS ORDERED: Influenza Vaccine 60 mcg/0.5 mL SYR (4YR UP) IM ONE (15:00)
[2018-08-15 16:04] VITALS: BP 106/64; PULSE 61; TEMP 98.8; O2SAT 96
== END 2018-08-15 16:24 | disposition home or self-care (01) | DRG 225 ==
LOC: C.ER 14:37 → C.3T 20:08
PROVIDERS: ADMIT Family Medicine; ATTEND Family Medicine
PROC: 0DTJ4ZZ Resection of Appendix, Percutaneous Endoscopic Approach (ICD-10-PCS; principal; 2018-08-11 09:50)
DX: K35.32 Acute appendicitis with perforation, localized peritonitis, and gangrene, without abscess (principal); K56.7 Ileus, unspecified; N40.0 Benign prostatic hyperplasia without lower urinary tract symptoms; Z16.11 Resistance to penicillins; Z80.0 Family history of malignant neoplasm of digestive organs; R30.0 Dysuria